=== PATIENT | female | born 1985 | race Caucasian/White ===

== ENCOUNTER 2020-04-01 14:14 | Emergency (ER) | payer OTHER, SELFPAY ==
[2020-04-01 14:37] VITALS: BP 110/80; PULSE 63; RESP 18; TEMP 36.7; O2SAT 100
== END 2020-04-01 15:37 | disposition left against medical advice (07) ==
PROVIDERS: PCP Family Medicine
DX: R10.9 Unspecified abdominal pain (principal)
CPT/HCPCS: 99199

== ENCOUNTER 2020-05-22 08:04 | Emergency (ER) | payer OTHER, SELFPAY ==
--- NOTE | ~2020-05-22 | XR_ITS ---
EXAMINATION: XR foot RT min 3V DATE: 05/22/2020 08:46 INDICATION: Right foot and first toe pain, initial encounter TECHNIQUE: Dorsoplantar, lateral, and 2 oblique views of the right foot were obtained. COMPARISON: None. FINDINGS: There is an acute, traumatic fracture at the dorsal tip of the first distal phalanx. No add itional acute osseous abnormality is identified. The joint spaces and soft tissues are normal. IMPRESSION: 1. Acute fracture at the dorsal tip of the first distal phalanx. Reviewed, dictated and finalized at location B.
[2020-05-22 08:32] VITALS: BP 117/73; PULSE 70; RESP 16; TEMP 36.2; O2SAT 99
--- NOTE | 2020-05-22 08:33 | ED.LOWEXIN ---
HPI - Extremity Injury (Lower) General Chief Complaint: Extremity Injury, Lower Stated Complaint: Extremity injury, lower Time Seen by Provider: 05/22/20 08:50 Source: patient and RN notes reviewed Mode of arrival: ambulatory Limitations: no limitations History of Present Illness HPI Narrative: 34-year-old female presents with concern for injury to the first digit of her right foot. Reports she dropped a tote containing 100 pound weights onto the toe on Wednesday. Reports since then the swelling, redness, pain has worsened. She denies any intervention, reports she has been working, wear steel toe boots at work. complaint: foot injury Related Data Allergies Allergy/AdvReac Type Severity Reaction Status Date / Time morphine Allergy Mild ANXIETY Verified 09/07/15 20:50 Penicillins Allergy Unknown Verified 09/07/15 20:50 Review of Systems Review of Systems: Narrative: CONSTITUTIONAL: Denies malaise, chills, sweats, or fever. CARDIOVASCULAR: Denies chest pain, palpitations, or edema. RESPIRATORY: Denies cough or dyspnea. SKIN: Reports bruising, redness, warmth to the first digit of the right foot. Reports a history of toenail fungus, her toenail is normally slightly pulled away from the toe. MUSCULOSKELETAL: Reports swelling, pain to the first digit of the right foot NEUROLOGIC: Denies numbness, weakness All systems reviewed & are unremarkable except as noted in HPI and below PMFSH Comments At time of signature, agree with nursing past medical, surgical, social and family history. There is no relevant family history pertinent to the presenting complaint Exam Narrative: Exam Narrative: GENERAL: Well-appearing, well-nourished, and in no acute distress. HEAD: Normocephalic, atraumatic. EYES: PERRLA, conjunctivae clear NECK: Supple. CHEST: Speaks in full sentences. No respiratory distress. HEART: Regular rate and rhythm. Normal and equal peripheral pulses. EXTREMITIES: First digit of right foot has normal strength and sensation, limited range of motion. Moderate edema, ecchymosis. Digit erythematous, warm. 3/5 strength with digit flexion and extension. Normal sensation with sensitivity to light touch and pain. No open wounds, no skin tenting, no devitalized tissue or atrophy, no trophic changes, no obvious deformity, alignment normal, generalized tenderness, nearby joints and structures intact. Distal pulses palpable and equal bilaterally, skin warm, dry, pink. Capillary refill less than 3 seconds. SKIN: Warm, dry, no rash. Toenail is pulled away from the toe, no compromise in the toenail noted, no bleeding. NEURO: Alert and oriented x3. PSYCH: Normal mood and affect Course Course Emergency Course: Patient is aware of diagnosis, understands and agrees to treatment plan. Anticipatory guidance given. Patient agrees to follow-up as directed and is aware of reasons to seek care at the emergency department. Portions of this record may have been created with voice recognition software Vital Signs Vital signs: Vital Signs Temperature 97.2 F L 05/22/20 08:32 Pulse Rate 70 05/22/20 08:32 Respiratory Rate 16 05/22/20 08:32 Blood Pressure 117/73 05/22/20 08:32 Pulse Oximetry 99 05/22/20 08:32 Temperature 97.2 F L 05/22/20 08:32 Pulse Rate 70 05/22/20 08:32 Respiratory Rate 16 05/22/20 08:32 Blood Pressure 117/73 05/22/20 08:32 Pulse Oximetry 99 05/22/20 08:32 Reviewed. MDM - Extremity Injury (Lower) MDM Narrative Medical decision making narrative: Patients injury and pain is consistent with musculoskeletal etiology. No signs of neurological or vascular compromise on exam. Compartments and tissues are soft without signs of compartment syndrome. Pain is felt appropriate for further evaluation on an outpatient basis. Based on warmth, erythema, pain beyond proportion, toenail pull away from the toe, will put patient on prophylactic antibiotics. Imaging Data My impression: Images reviewed, interpreted by
--- NOTE | 2020-05-22 09:19 | PC.NURSE ---
rt great toe geovany taped.
== END 2020-05-22 09:48 | disposition home or self-care (01) ==
PROVIDERS: Emergency Provider Nurse Practitioner; PCP Nurse Practitioner Family
DX: S92.421A Displaced fracture of distal phalanx of right great toe, initial encounter for closed fracture (principal); W20.8XXA Other cause of strike by thrown, projected or falling object, initial encounter; Z98.84 Bariatric surgery status
CPT/HCPCS: 73630; 99214; G0463

== ENCOUNTER 2021-05-23 13:23 | Emergency (ER) | payer OTHER, SELFPAY ==
[2021-05-23 13:35] VITALS: BP 95/65; PULSE 76; RESP 18; TEMP 36.4; O2SAT 100
--- NOTE | 2021-05-23 13:54 | ED.URI ---
HPI - URI/Sore Throat General Chief Complaint: Upper Respiratory Infection Stated Complaint: Sore Throat Time Seen by Provider: 05/23/21 13:54 Source: patient and RN notes reviewed Mode of arrival: ambulatory Limitations: no limitations History of Present Illness HPI Narrative: 35-year-old female presents to the [facility] with complaints of sore throat, fevers, postnasal drainage. Has had multiple strep contacts. States that her kids were tested for Covid 2 days ago which were negative. No treatment prior to arrival MD elicited complaint: fever (100.2 at home yesterday) Related Data Home Medications Medication Instructions Recorded Confirmed No Home Medications 05/23/21 05/23/21 Allergies Allergy/AdvReac Type Severity Reaction Status Date / Time morphine Allergy Mild ANXIETY Verified 05/23/21 14:20 Penicillins Allergy Unknown Other Verified 05/23/21 14:20 Review of Systems Review of Systems: All systems reviewed & are unremarkable except as noted in HPI and below Constitutional: Constitutional: Reports as per HPI, Denies chills and Reports fever(s) Eyes: Eyes: Reports no additional eye complaints ENT: Reports as per HPI, Reports nasal congestion and Reports sore throat Cardiovascular: Cardiovascular: Reports no additional cardiovascular complaints and Denies chest pain Respiratory: Respiratory: Reports no additional respiratory complaints, Denies cough and Denies dyspnea Musculoskeletal: Musculoskeletal: Reports no additional musculoskeletal complaints Integumentary/Breasts: Skin/Breast: Reports system reviewed and no additional complaints, except as docu Neurologic: Reports system reviewed and no additional complaints, except as documented Psychiatric: Psychiatric: Reports no additional psychiatric complaints Allergic/Immunologic: Allergic/Immunologic: Reports no additional allergic/immunologic complaints PMFSH Past Medical History Medical History (Updated 05/25/21 @ 08:32 by Taylor Carroll) No significant medical problems Surgical History Surgical History (Updated 05/25/21 @ 08:32 by Taylor Carroll) No significant past surgical history Comments At the time of my signature, I reviewed and agree with the nursing past medical, surgical, social, and family history. There is no relevant family history pertinent to the patient complaint. Exam Const: General: no acute distress and alert Nutritional Appearance: well nourished and thin Orientation/consciousness: patient oriented x3 Limitations: no limitations HENMT: Head: normal to inspection Ears: external ears normal, TM's normal bilaterally and EAC's normal Eyes: Conjunctivae: conjunctivae normal Pupils: Equal, round and reactive pupils present Neck: Neck: normal visual inspection, no lymphadenopathy and no meningeal signs Chest: Chest palpation & inspection: normal inspection of the chest Resp: Effort & Inspection: normal respiratory effort and no use of accessory muscles Auscultation: clear to auscultation bilaterally, no crackles, no rales, no rhonchi and no wheezes Cardio: Rate: regular rate Rhythm: regular rhythm Back/Spine/Pelvis: Back: no CVA tenderness Skin: General skin exam: normal color Rashes: no rashes Neuro: General: patient oriented x3, moves all extremities, no meningeal signs and no focal motor deficits Gait exam (Neuro): Normal gait present Extrem: General: normal to inspection Psych: Appearance: grossly normal and well kempt Mental Status: mental status grossly normal Affect: normal affect Attitude: cooperative Thought content: Yes Normal thought content present Course Course Emergency Course: At the time of my signature, I reviewed and agree with the nursing past medical, surgical, social, and family history. There is no relevant family history pertinent to the patient complaint. Vital Signs Vital signs: Vital Signs Temperature 97.6 F 05/23/21 13:35 Pulse Rate 76 05/23/21 13:35 Respirato
== END 2021-05-23 14:32 | disposition home or self-care (01) ==
PROVIDERS: Emergency Provider Nurse Practitioner
DX: B34.9 Viral infection, unspecified (principal)
CPT/HCPCS: 87081; 87880; 99213; G0463

== ENCOUNTER 2021-08-31 09:29 | Emergency (ER) | payer OTHER, SELFPAY ==
--- NOTE | 2021-08-31 09:34 | ED.FEMALEGU ---
HPI - Female Genitourinary General Chief complaint: Urogenital-Female Stated complaint: uti Time Seen by Provider: 08/31/21 09:46 Source: patient and RN notes reviewed Mode of arrival: ambulatory Limitations: no limitations History of Present Illness HPI Narrative: 35-year-old female presents with concern for 2-day history of urine frequency, urgency, suprapubic pressure. Reports after intercourse last week she had midcycle spotting. Reports that has resolved. Reports she noticed small amount of blood when she wipes after urination. She denies back pain, abdominal pain, purulent vaginal discharge, pain with sex, fever, body aches, chills, sweats. MD elicited complaint: UTI Related Data Home Medications Medication Instructions Recorded Confirmed levothyroxine 50 mcg PO DAILY 08/31/21 08/31/21 Allergies Allergy/AdvReac Type Severity Reaction Status Date / Time morphine Allergy Mild ANXIETY Verified 08/31/21 09:57 Penicillins Allergy Unknown Other Verified 08/31/21 09:57 Review of Systems Review of Systems: CONSTITUTIONAL: Denies malaise, chills, sweats, or fever. CARDIOVASCULAR: Denies chest pain, palpitations, or edema. RESPIRATORY: Denies cough or dyspnea. GASTROINTESTINAL: Denies abdominal pain, nausea, vomiting, diarrhea GENITOURINARY: Reports frequency, urgency, suprapubic pressure. Denies dysuria, flank pain or hematuria. SKIN: Denies rash or itching. MUSCULOSKELETAL: Denies back pain or myalgia. All systems reviewed & are unremarkable except as noted in HPI and below PMFSH Past Medical History Medical History (Updated 08/31/21 @ 10:01 by Taylor Meyer NP) No significant medical problems Surgical History Surgical History (Updated 05/25/21 @ 08:32 by Taylor Carroll) No significant past surgical history Comments At time of signature, agree with nursing past medical, surgical, social and family history. There is no relevant family history pertinent to the presenting complaint Exam Narrative: GENERAL: Well-appearing, well-nourished, and in no acute distress. HEAD: Normocephalic. EYES: PERRLA, conjunctivae clear. NECK: Supple. No lymphadenopathy CHEST: Clear to auscultation. No respiratory distress. HEART: Regular rate and rhythm. ABDOMEN: Soft, nontender upon palpation, nondistended, normal active bowel sounds, no palpable or pulsatile masses, no guarding. No CVA tenderness SKIN: Warm, dry, no rash. NEURO: Alert and oriented x3. PSYCH: Normal mood and affect Course Course Emergency Course: Patient is aware of diagnosis, understands and agrees to treatment plan. Anticipatory guidance given. Patient agrees to follow-up as directed and is aware of reasons to seek care at the emergency department. Portions of this record may have been created with voice recognition software Vital Signs Vital signs: Reviewed. MDM - Female Genitourinary MDM Narrative Medical decision making narrative: Exam findings and UA show no acute concerns or changes; patient is non-toxic appearing and is in no distress. Patient is appropriate for outpatient treatment and follow-up. Differential Diagnosis Differential diagnosis: Likely urinary tract infection, cervicitis, vaginitis, cystitis and other (PID) Critical Care Time Critical Care Time Critical Care Time: No Discharge Plan Discharge Clinical Impression: Urinary tract infection Qualifiers: Urinary tract infection type: site unspecified Hematuria presence: with hematuria Qualified Code(s): N39.0 - Urinary tract infection, site not specified Patient Disposition: Home, Self-Care Condition: Stable Instructions: Antibiotic Form, Urinary Tract Infection in Women (ED) Additional Instructions: We will send a urine culture to the lab; if the culture identifies an organism that the prescribed antibiotic will not treat, you will receive a phone call from an urgent care staff member and an appropriate antibiotic will be prescribed. -Your symptoms should begin
[2021-08-31 09:36] VITALS: BP 108/74; PULSE 74; RESP 16; TEMP 36.7; O2SAT 99
== END 2021-08-31 10:25 | disposition home or self-care (01) ==
PROVIDERS: Emergency Provider Nurse Practitioner
DX: N39.0 Urinary tract infection, site not specified (principal); E03.9 Hypothyroidism, unspecified; Z98.84 Bariatric surgery status
CPT/HCPCS: 81003; 87077; 87086; 87088; 87186; 99213; G0463

== ENCOUNTER 2021-11-05 09:42 | Emergency (ER) | payer OTHER, SELFPAY ==
[2021-11-05 09:51] VITALS: BP 122/73; PULSE 64; RESP 18; TEMP 36.8; O2SAT 100
--- NOTE | 2021-11-05 09:51 | ED.ALLEREA ---
HPI - Allergic Reaction General Chief complaint: Allergic Reaction Stated complaint: allergic reaction Time Seen by Provider: 11/05/21 09:47 History of Present Illness HPI narrative: 35-year-old female presents to the emergency room with complaints of acute onset of rash. Patient states she noticed the rash and itching approximately 30 minutes after ingesting a protein shake. Patient states she is allergic to penicillins. Associated with some tingling to her mouth and tongue. Denies shortness of breath difficulty breathing. Related Data Home Medications Medication Instructions Recorded Confirmed levothyroxine 50 mcg PO DAILY 08/31/21 08/31/21 Allergies Allergy/AdvReac Type Severity Reaction Status Date / Time morphine Allergy Mild ANXIETY Verified 11/05/21 09:58 Review of Systems Review of Systems: CONSTITUTIONAL: Denies fever, chills, or sweats. EYES: Denies visual changes, redness, or discharge. ENT: Denies rhinorrhea, congestion, sore throat, or otalgia. CARDIOVASCULAR: Denies chest pain, palpitations, or edema. RESPIRATORY: Denies cough or dyspnea. GASTROINTESTINAL: Denies abdominal pain, nausea, vomiting, or diarrhea. GENITOURINARY: Denies dysuria or hematuria. SKIN: Reports systemic rash or itching. MUSCULOSKELETAL: Denies back pain, joint pain, or myalgia. NEUROLOGIC: Denies headache, numbness, dizziness, or weakness. PSYCHIATRIC: Denies anxiety or depression. [facility] Past Medical History Medical History No significant medical problems Surgical History Surgical History No significant past surgical history Exam Narrative: GENERAL: Well-appearing, well-nourished, and in no acute distress. HEAD: Normocephalic, atraumatic. EYES: PERRLA and EOMI. ENT: Nares clear, no rhinorrhea or epistaxis. Mucous membranes moist. NECK: Supple. No adenopathy or masses. No carotid bruits or JVD CHEST: Clear to auscultation. No respiratory distress. No wheezes rales or rhonchi HEART: Regular rate and rhythm. No murmur heard. Normal peripheral pulses. ABDOMEN: Soft, nontender, nondistended, normal active bowel sounds. EXTREMITIES: Normal range of motion. No edema. SKIN: urticaria noted to back, chest, UE. NEURO: No focal deficits. Alert and oriented x3. PSYCH: Normal mood and affect. Course Course Emergency Course: 35-year-old female presented to emergency room complaining of allergic reaction after drinking a protein shake. IV established given Solu-Medrol Pepcid and Benadryl. After reexamination patient states that symptoms have begun to resolve. We will send patient home with prescription for steroids. Vital Signs Vital signs: Vital Signs Temperature 36.8 C 11/05/21 09:51 Pulse Rate 64 11/05/21 09:51 Respiratory Rate 18 11/05/21 09:51 Blood Pressure 122/73 11/05/21 09:51 Pulse Oximetry 100 11/05/21 09:51 Temperature 36.8 C 11/05/21 09:51 Pulse Rate 64 11/05/21 09:51 Respiratory Rate 18 11/05/21 09:51 Blood Pressure 122/73 11/05/21 09:51 Pulse Oximetry 100 11/05/21 09:51 MDM - Allergic Reaction MDM Narrative Medical decision making narrative: Patient responded well to Solu-Medrol Pepcid and Benadryl and a liter of IV fluids. Will send patient home with a short course of steroids Discharge Plan Discharge Clinical Impression: Urticaria Allergic reaction Qualifiers: Encounter type: initial encounter Qualified Code(s): T78.40XA - Allergy, unspecified, initial encounter Patient Disposition: Home, Self-Care Condition: Stable Instructions: Antibiotic Form, Allergies (ED) Additional Instructions: Recommend Pepcid daily. Recommend Benadryl every 6-8 hours as needed. Given instructions on when to return to the emergency room. Prescriptions: New prednisone 20 mg tablet 40 mg PO DAILY Qty: 10 RF: 0 No Action levothyroxine 50 mcg table
[2021-11-05] MEDS: diphenhydrAMINE HCl INJ 50 MG/ML VIAL 25 MG IV PUSH (10:00)
[2021-11-05] MEDS: FAMOTIDINE 20 MG/2 ML VIAL IV PUSH (10:00)
[2021-11-05] MEDS: methylPREDNISolone SOD SUCC 125 MG VIAL IV PUSH (10:00)
[2021-11-05] MEDS: SODIUM CHLORIDE 0.9% IV 1,000 ML 999 ML IV CONT (10:01)
[2021-11-05 11:05] VITALS: BP 101/69; PULSE 62; RESP 16; O2SAT 99
== END 2021-11-05 11:06 | disposition home or self-care (01) ==
PROVIDERS: Emergency Provider Nurse Practitioner Family
DX: L50.0 Allergic urticaria (principal)
CPT/HCPCS: 96361; 96374; 96375; 99284; J1200; J2930; J7030

== ENCOUNTER 2022-02-24 13:36 | Emergency (ER) | payer OTHER, SELFPAY ==
--- NOTE | ~2022-02-24 | CT_ITS ---
EXAMINATION: CT abdomen pelvis w con DATE: 02/24/2022 15:20 INDICATION: Rectal pain. TECHNIQUE: Computed tomography (CT) of the abdomen and pelvis was performed with 100 mL Omnipaque 300 intravenous contrast. Automated exposure control and iterative reconstruction technique were employe d. The dose-length product was 280.49 mGy-cm. COMPARISON: None. FINDINGS: The visualized portions of the lung bases demonstrate mild atelectasis. No pleural effusion . The heart size is normal. No pericardial effusion. There are surgical changes of the stomach. Calci fications in the spleen are consistent with old granulomatous disease. The gallbladder is absent. The liver, pancreas, adrenal glands, and kidneys are normal. There are no dilated loops of bowel. The ap pendix is normal. There are no pathologically enlarged lymph nodes. There is no free intraperitoneal fluid. Pelvic floor dysfunction is noted. There is mild thoracolumbar spondylosis. IMPRESSION: 1. Pelvic floor dysfunction. Reviewed, dictated and finalized at location B.
[2022-02-24 13:45] VITALS: BP 109/61; PULSE 65; RESP 16; TEMP 36.3; O2SAT 99
--- NOTE | 2022-02-24 14:03 | PC.NURSE ---
rectal exam by provider with press writer present.
--- NOTE | 2022-02-24 14:05 | ED.GENADULT ---
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 EYES: Denies visual changes, redness, or discharge. ENT: Denies rhinorrhea, congestion, sore throat, or otalgia. CARDIOVASCULAR: Denies chest pain, palpitations, or edema. RESPIRATORY: Denies cough or dyspnea. GASTROINTESTINAL: Denies abdominal pain, nausea, vomiting, or diarrhea. GENITOURINARY: Denies dysuria or hematuria. recctal pain SKIN: Denies rash or itching. MUSCULOSKELETAL: Denies back pain, joint pain, or myalgia. NEUROLOGIC: Denies headache, numbness, or weakness. PSYCHIATRIC: Denies anxiety or depression. PMFSH Past Medical History Medical History No significant medical problems Surgical History Surgical History No significant past surgical history Exam Const: Other: APPEARANCE: Well appearing, no pain in distress, well-nourished. Head normocephalic atraumtaic. EYES: PERRLA/EOMI, conjunctivae very clear. NOSE: Normal no drainage EARS:TMS clear Ct Oh, with good light reflex. THROAT: Pharynx clear, no exudate. NECK: Supple. No adenopathy, no masses. RESPIRATORY: Airway patent, repsirations nonlabored. Clear to auscultation bilaterally, no rales, rhonchi, wheezing. CARDIOVASCULAR: Regular rate and rhythm without murmurs rubs or gallops. ABDOMINAL: Soft, nontender, nondistended, no hepatosplenomegally, no external hemorrhoids and having so much pain with rectal unable to get pinkie finger more then past my dip joint into rectum clamping down with sphincter no abnormalities otherwise felt not sure if stricture or just due to pain unable to relax MUSCULOSKELETAl: Moves all extremities. Strenght/ROM intact, No edema, No calf tenderness. NEURO: Alert. Cranial nerves II through XII intact. Good gait. Good coordination SKIN:: Warm, dry. Normal Color PSYCHIATRIC: Normal affect/mood, normal interaction with parents. Course Course Emergency Course: updated pt says h/o iron def anemia so talked about otc meds and pain pills will constipate her so otc meds for this as needed and outpt f/u must be done b/c going on so long pt says she will f/u Vital Signs Vital signs: Vital Signs Temperature 36.3 C L 02/24/22 13:45 Pulse Rate 65 02/24/22 13:45 Respiratory Rate 16 02/24/22 13:45 Blood Pressure 109/61 02/24/22 13:45 Pulse Oximetry 99 02/24/22 13:45 Temperature 36.3 C L 02/24/22 13:45 Pulse Rate 65 02/24/22 13:45 Respiratory Rate 16 02/24/22 13:45 Blood Pressure 109/61 02/24/22 13:45 Pulse Oximetry 99 02/24/22 13:45 Medical Decision Making Vital Signs Vital Signs: Vital Signs Temperature 36.3 C L 02/24/22 13:45 Pulse Rate 65 02/24/22 13:45 Respiratory Rate 16 02/24/22 13:45 Blood Pressure 109/61 02/24/22 13:45 Pulse Oximetry 99 02/24/22 13:45 Temperature 36.3 C L 02/24/22 13:45 Pulse Rate 65 02/24/22 13:45 Respiratory Rate 16 02/24/22 13:45 Blood Pressure 109/61 02/24/22 13:45 Pulse Oximetry 99 06
[2022-02-24] MEDS: ONDANSETRON INJ 4 MG/2 ML VIAL IV PUSH (14:18)
[2022-02-24] MEDS: LORazepam INJ (*CRX) 2 MG/ML VIAL 1 MG IV PUSH (14:20)
[2022-02-24] MEDS: fentaNYL CITRATE INJ (*CRX) 100 MCG/2 ML VIAL 50 MCG IV PUSH (14:23)
[2022-02-24 14:49] LABS: Eosinophils Absolute Auto 0.1 K/mm3 (0-0.3); Eosinophils Percent Auto 2.5 % (0-4.4); Hematocrit 30.1 % (37.0-47.0); Immature Granulocyte Absolute 0.01 K/mm3 (0.00-0.031); Immature Granulocyte Percent A 0.3 % (0-0.5); Lymphocytes Absolute Auto 1.68 K/mm3 (0.9-3.2); Lymphocytes Percent Auto 42.3 % (18.3-44.2); Mean Corpuscular HGB Conc 29.9 g/dl (32-36); Mean Corpuscular Hemoglobin 22.1 pg (26-34); Mean Corpuscular Volume 73.8 fl (80-100); Mean Platelet Volume 9.7 fl (7.4-10.4); Monocytes Absolute Auto 0.5 K/mm3 (0.1-0.6); Monocytes Percent Auto 12.1 % (2.6-8.5); Neutrophils Absolute Auto 1.7 K/mm3 (1.3-6.7); Neutrophils Percent Auto 41.8 % (45.5-73.1); Platelet Count Result 275 k/mm3 (150-375); Red Blood Count 4.08 M/mm3 (4.2-5.4); Red Cell Distribution Width 16.3 % (11.5-14.5)
[2022-02-24 15:00] LABS: Alanine Aminotransferase 19 U/L (6-35); Alkaline Phosphatase 61 U/L (38-126); Anion Gap 6 mmol/L (8-16); Aspartate Amino Transferase 28 U/L (14-36); Bilirubin,Total 0.2 mg/dL (0.2-1.3); Blood Urea Nitrogen 15 mg/dL (7-17); Calcium 8.5 mg/dL (8.4-10.2); Carbon Dioxide 25 mmol/L (22-30); Chloride 108 mmol/L (98-107); Estimated Glomerular Filt Rate > 60; Glucose 85 mg/dL (65-110); Potassium 3.8 mmol/L (3.4-5.0); Sodium 139 mmol/L (137-145)
[2022-02-24] MEDS: HYDROcodone/acetaminophen (*CRX) 5-325 MG TABLET 1 TAB PO (16:24)
[2022-02-24 16:52] VITALS: RESP 16; O2SAT 100
== END 2022-02-24 16:53 | disposition home or self-care (01) ==
PROVIDERS: Emergency Provider Emergency Medicine
DX: K62.89 Other specified diseases of anus and rectum (principal); G89.29 Other chronic pain; D50.9 Iron deficiency anemia, unspecified
CPT/HCPCS: 36415; 74177; 80053; 81025; 85025; 96374; 96375; 99284; A9270; J2060; J2405; J3010; Q9967

== ENCOUNTER 2022-04-06 20:07 | Emergency (ER) | payer OTHER, SELFPAY ==
--- NOTE | ~2022-04-06 | CT_ITS ---
EXAMINATION: CT abdomen pelvis w con DATE: 04/06/2022 23:11 INDICATION: Dysuria, right flank pain, chills, fevers and body aches. TECHNIQUE: Computed tomography (CT) of the abdomen and pelvis was performed with 100 mL Omnipaque-300 intravenous contrast. Automated exposure control and iterative reconstruction technique were employe d. The dose-length product was 309.98 mGy-cm. COMPARISON: 02/24/2022 FINDINGS: Minimal dependent atelectasis in the left lower lobe. Heart size is normal. No pericardial or pleural effusion. A few splenic calcifications consistent with old granulomatous disease. Postoperative bardales ge of prior gastric bypass procedure. Gallbladder is nonvisualized and likely surgically absent. Live r, pancreas, bilateral adrenal glands and left kidney are normal. Heterogeneous parenchymal enhanceme nt at the lower pole of the right kidney consistent with pyelonephritis. Bowels are unremarkable with normal retrocecal appendix. Bladder is normal. Anteverted uterus and right adnexa are unremarkable. 1.9 cm peripherally enhancing likely corpus luteum cyst at the left adnexa. Small amount of likely ph ysiologic free fluid in the cul-de-sac. No abscess or free intraperitoneal gas. No pathologically enl arged abdominal or pelvic lymphadenopathy. Bones are unremarkable. IMPRESSION: 1. Heterogeneous parenchymal enhancement at the lower pole of the right kidney most suspicious for py elonephritis. Correlate with urinalysis. Reviewed, dictated and finalized at location A. IMPRESSION: 1. Heterogeneous parenchymal enhancement at the lower pole of the right kidney most suspicious for pyelonephritis. Correlate with urinalysis.
[2022-04-06 20:33] VITALS: BP 108/62; PULSE 90; RESP 18; TEMP 36.9; O2SAT 100
[2022-04-06 21:13] LABS: Appearance Urine Slightly Cloudy (Clear); Bilirubin Urine Negative (Negative); Blood Urine Negative (Negative); Color Urine Yellow (Yellow); Glucose Urine UA Negative (Negative); Ketones Urine Negative (Negative); Leukocyte Esterase Ur 2+ LEU/UL (Negative); Nitrate Urine Positive (Negative); Protein Urine 1+ mg/dL (Negative); Urobilinogen Urine 0.2 mg/dL (<2.0)
[2022-04-06 21:27] LABS: Bacteria Urine 1+ /hpf; Mucus Urine Rare /lpf; Squamous Epithelial Cell Urine Occasional /hpf (Few); WBC Urine >75 /hpf
[2022-04-06 21:29] LABS: Add Urine Microscopic? YES
--- NOTE | 2022-04-06 21:49 | ED.FEMALEGU ---
HPI - Female Genitourinary General Chief complaint: Urogenital-Female Stated complaint: flank pain Time Seen by Provider: 04/06/22 21:40 Source: patient Mode of arrival: ambulatory Limitations: no limitations History of Present Illness HPI Narrative: This is a 36 year old female that presents to the ER for dysuria noted since yesterday. Associated with urinary frequency, fever, and flank pain. Denies vomiting or hematuria. Related Data Home Medications Medication Instructions Recorded Confirmed levothyroxine 50 mcg tablet 50 mcg PO DAILY 08/31/21 08/31/21 Allergies Allergy/AdvReac Type Severity Reaction Status Date / Time Penicillins Allergy Unknown Verified 04/06/22 22:05 Review of Systems Review of Systems: CONSTITUTIONAL: Reports fever GASTROINTESTINAL: Reports abdominal pain. Denies nausea, vomiting GENITOURINARY: Reports dysuria. Denies hematuria. All systems reviewed & are unremarkable except as noted in HPI and below PMFSH Past Medical History Medical History (Updated 04/07/22 @ 00:20 by Julienne Watson PA-C) No significant medical problems Surgical History Surgical History (Updated 04/06/22 @ 21:51 by Julienne Watson PA-C) History of bariatric surgery History of cholecystectomy Social History Social History (Updated 04/06/22 @ 21:51 by Julienne Watson PA-C) Substance use: never Exam Narrative: GENERAL: Well-appearing, well-nourished, and in no acute distress. HEAD: Normocephalic, atraumatic. EYES: EOMI. CHEST: Clear to auscultation. No respiratory distress. No wheezes rales or rhonchi HEART: Regular rate and rhythm. No murmur heard. Normal peripheral pulses. ABDOMEN: Soft, nondistended, normal active bowel sounds. Right-sided CVA tenderness EXTREMITIES: Normal range of motion. No edema. SKIN: Warm, dry, no rash. NEURO: No focal deficits. Alert and oriented x3. PSYCH: Normal mood and affect Course Vital Signs Vital signs: Vital Signs Temperature 98.5 F 04/06/22 20:33 Pulse Rate 90 04/06/22 20:33 Respiratory Rate 18 04/06/22 20:33 Blood Pressure 108/62 04/06/22 20:33 Pulse Oximetry 100 04/06/22 20:33 Oxygen Delivery Room Air 04/06/22 20:33 Temperature 98.5 F 04/06/22 20:33 Pulse Rate 76 04/07/22 00:22 Respiratory Rate 18 04/07/22 00:22 Blood Pressure 85/60 L 04/07/22 00:22 Pulse Oximetry 97 04/07/22 00:22 Oxygen Delivery Room Air 04/06/22 22:03 MDM - Female Genitourinary MDM Narrative Medical decision making narrative: Patient presents emergency department for fever, flank pain, and dysuria. She is afebrile in the ED and nontoxic-appearing. Her vitals are stable. CBC with leukocytosis to 13.7. Also shows microcytic anemia with hemoglobin of 9.5 which appears to be stable from previous labs. Metabolic panel and lipase without concerning findings. UA is without evidence of infection. test is negative. CT scan abdomen and pelvis shows evidence of right pyelonephritis. Patient given first dose of antibiotics IV in the ED and hydrated. Given option of admission or further outpatient management with oral antibiotics. Patient wishes to be discharged home. She was instructed to follow-up with primary care doctor. She was given warnings to return to the ER Lab Data Attestation: I reviewed the patient's lab results. Result diagrams: 04/06/22 22:10 04/06/22 22:10 Labs: Lab Results 04/06/22 04/06/22 04/06/22 Range/Units 21:05 21:05 22:10 WBC 13.7 H (4.5-10.0) K/mm3 RBC 4.42 (4.2-5.4) M/mm3 Hgb 9.5 L (12.0-15.0) g/dL Hct 32.9 L (37.0-47.0) % MCV 74.4 L (80-100) fl MCH 21.5 L (26-34) pg MCHC 28.9 L (32-36) g/dl RDW 17.1 H (11.5-14.5) % Plt Count 259 (150-375) k/mm3 MPV 9.5 (7.4-10.4) fl Immature Gran % (Auto) 0.3 (0-0.5) % Neut % (Auto) 81.5 H (45.5-73.1) % Lymph % (Auto) 7.6 L (18.3-44.2) % [place] % (Auto) 10.1
[2022-04-06 22:03] VITALS: BP 106/68; PULSE 85; RESP 20; O2SAT 100
[2022-04-06] MEDS: SODIUM CHLORIDE 0.9% IV 1,000 ML 999 ML IV CONT (22:11)
[2022-04-06 22:18] LABS: Basophils Absolute Auto 0.1 K/mm3 (0.0-0.1); Basophils Percent Auto 0.4 % (0.2-1.2); Eosinophils Percent Auto 0.1 % (0-4.4); Hematocrit 32.9 % (37.0-47.0); Hemoglobin 9.5 g/dL (12.0-15.0); Immature Granulocyte Absolute 0.04 K/mm3 (0.00-0.031); Immature Granulocyte Percent A 0.3 % (0-0.5); Lymphocytes Absolute Auto 1.04 K/mm3 (0.9-3.2); Lymphocytes Percent Auto 7.6 % (18.3-44.2); Mean Corpuscular HGB Conc 28.9 g/dl (32-36); Mean Corpuscular Hemoglobin 21.5 pg (26-34); Mean Corpuscular Volume 74.4 fl (80-100); Mean Platelet Volume 9.5 fl (7.4-10.4); Monocytes Absolute Auto 1.4 K/mm3 (0.1-0.6); Monocytes Percent Auto 10.1 % (2.6-8.5); Neutrophils Absolute Auto 11.2 K/mm3 (1.3-6.7); Neutrophils Percent Auto 81.5 % (45.5-73.1); Platelet Count Result 259 k/mm3 (150-375); Red Blood Count 4.42 M/mm3 (4.2-5.4); Red Cell Distribution Width 17.1 % (11.5-14.5); White Blood Count 13.7 K/mm3 (4.5-10.0)
[2022-04-06 22:29] LABS: Alanine Aminotransferase 14 U/L (6-35); Albumin Level 3.8 g/dL (3.5-5.1); Alkaline Phosphatase 66 U/L (38-126); Anion Gap 8 mmol/L (8-16); Aspartate Amino Transferase 22 U/L (14-36); Bilirubin,Total 0.3 mg/dL (0.2-1.3); Blood Urea Nitrogen 11 mg/dL (7-17); Calcium 8.9 mg/dL (8.4-10.2); Carbon Dioxide 25 mmol/L (22-30); Chloride 105 mmol/L (98-107); Estimated CRCL calculation 92 ml/min; Estimated Glomerular Filt Rate > 60; Glucose 107 mg/dL (65-110); Lipase 55 U/L (23-300); Potassium 4.3 mmol/L (3.4-5.0); Sodium 138 mmol/L (137-145)
[2022-04-06 22:37] LABS: Hypochromasia 1+ (NORMAL); Platelet Estimate Adequate (Adequate)
[2022-04-06 22:38] LABS: Anisocytosis 2+ (NORMAL)
[2022-04-06 22:52] LABS: Pregnancy On Board Control Positive; Urine Pregnancy Test Negative
[2022-04-07 00:22] VITALS: BP 85/60; PULSE 76; RESP 18; O2SAT 97
== END 2022-04-07 00:33 | disposition home or self-care (01) ==
PROVIDERS: Emergency Medicine; Physician Assistant; Emergency Provider General Practice; PCP Nurse Practitioner Family
DX: N12 Tubulo-interstitial nephritis, not specified as acute or chronic (principal); Z98.84 Bariatric surgery status
CPT/HCPCS: 36415; 74177; 80053; 81001; 81025; 83690; 85025; 87077; 87086; 87186; 96361; 96365; 96368; 99284; J0131; J0696; J7030; Q9967

== ENCOUNTER 2023-03-17 19:16 | Emergency (ER) | payer OTHER, SELFPAY ==
[2023-03-17 19:19] VITALS: BP 109/78; PULSE 88; RESP 12; TEMP 36.2; O2SAT 100
--- NOTE | 2023-03-17 21:34 | ED.ALLEREA ---
HPI - Allergic Reaction General Chief complaint: Allergic Reaction <JOSE Murguia Last Filed: 03/17/23 23:48> Stated complaint: allergic reaction since 03/09 <JOSE Murguia Last Filed: 03/17/23 23:48> Time Seen by Provider: 03/17/23 21:24 <Barb Marshall PA-C - Last Filed: 03/17/23 23:48> History of Present Illness HPI narrative: 37-year-old female reports for evaluation of itchiness and burning sensation starting her face, neck and chest x7 days. She also reports hives that occurred on her chest today but have since resolved. Patient states she went to urgent care 2 days into symptoms and was given a low-dose of prednisone for 5 days. States she took her last dose of the prednisone yesterday. Reports the prednisone helped her symptoms for a short-term but then worsened after she discontinued her prednisone. She states her lips may be slightly swollen, but denies swelling to tongue, throat, difficulty breathing, wheezing, swelling in her throat, n/v, abdominal pain, fever. She tried almond milk for the first time prior to the start of symptoms, but otherwise denies new potential triggers including other new foods, creams or lotions, clothing. 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 She made a primary care appointment in 4 days for evaluation, but came to the ED because she states she cannot wait that long. <JOSE Murguia Last Filed: 03/17/23 23:48> Related Data Home medications: Home Medications Medication Instructions Recorded Confirmed levothyroxine 50 mcg tablet 50 mcg PO DAILY 08/31/21 08/31/21 <JOSE Murguia Last Filed: 03/17/23 23:48> Allergies/adverse reactions: Allergies Allergy/AdvReac Type Severity Reaction Status Date / Time Penicillins Allergy Unknown Verified 03/17/23 19:17 morphine AdvReac Anxiety Verified 03/17/23 21:29 <JOSE Murguia Last Filed: 03/17/23 23:48> Review of Systems Review of Systems: CONSTITUTIONAL: Denies fever, chills EYES: Denies visual changes, redness, or discharge. ENT: Denies rhinorrhea, congestion, sore throat, or otalgia. CARDIOVASCULAR: Denies chest pain, palpitations, or edema. RESPIRATORY: Denies cough or dyspnea. GASTROINTESTINAL: Denies abdominal pain, nausea, vomiting, or diarrhea. GENITOURINARY: Denies dysuria or hematuria. SKIN: See HPI MUSCULOSKELETAL: Denies back pain, joint pain, or myalgia. NEUROLOGIC: Denies headache, numbness, dizziness, or weakness. PSYCHIATRIC: Denies anxiety or depression. <Barb Marshall PA-C - Last Filed: 03/17/23 23:48> [facility] Past Medical History Medical History: Medical History No significant medical problems <Barb Marshall PA-C - Last Filed: 03/17/23 23:48> Surgical History Surgical History: Surgical History History of bariatric surgery History of cholecystectomy <Barb Marshall PA-C - Last Filed: 03/17/23 23:48> Social History Social History: Social History Substance use: never <Barb Marshall PA-C - Last Filed: 03/17/23 23:48> Exam Narrative: GENERAL: Well-appearing, in no acute distress. Patient resting comfortably in exam bed. She is pleasant and conversational, speaking in full sentences. HEAD: Normocephalic EYES: PERRLA ENT: Nares clear. Mucous membranes moist. Oropharynx without tonsillar hypertrophy exudate or other lesions. Multiple caries. No swelling to lips, tongue, uvula, or pharynx. She is tolerating secretions. NECK: Supple. CHEST: No respiratory distress. Clear to auscultation, no adventitious breath sounds. No retractions. HEART: Regular rate and rhythm. No murmur heard. Normal peripheral pulses. ABDOMEN: Soft, nontender, normal active b
[2023-03-17] MEDS: FAMOTIDINE 20 MG/2 ML VIAL IV PUSH (21:57)
[2023-03-17] MEDS: diphenhydrAMINE HCl INJ 50 MG/ML VIAL 25 MG IV PUSH (21:58)
[2023-03-18 00:08] VITALS: BP 106/89; PULSE 76; RESP 16; O2SAT 98
== END 2023-03-18 00:10 | disposition home or self-care (01) ==
PROVIDERS: Emergency Provider Physician Assistant; PCP Nurse Practitioner Family
DX: T78.40XA Allergy, unspecified, initial encounter (principal); Z90.49 Acquired absence of other specified parts of digestive tract; Z98.84 Bariatric surgery status
CPT/HCPCS: 96374; 96375; 99284; J1100; J1200

== ENCOUNTER 2024-03-24 21:58 | Emergency (ER) | payer OTHER, SELFPAY ==
--- NOTE | ~2024-03-24 | CT_ITS ---
EXAMINATION: CT abdomen pelvis w con DATE: 03/25/2024 01:50 INDICATION: Abdominal pain and flank pain TECHNIQUE: Computed tomography (CT) of the abdomen and pelvis was performed with 100 mL Omnipaque-350 intravenous contrast. Automated exposure control and iterative reconstruction technique were employe d. The dose-length product was 252.82 mGy-cm. COMPARISON: 04/06/2022 FINDINGS: Lung bases are clear. Heart size is normal. Postoperative change of prior gastric bypass procedure wi th jejunojejunal anastomosis in the left abdomen. Unchanged mild dilation of the common bile duct to 8 mm with mild central intrahepatic ductal or ductal dilation with gallbladder again not able to be v isualized suggesting this is surgically absent.. The splenic calcific lesions consistent with old gra nulomatous disease. Pancreas, bilateral adrenal glands and kidneys are normal. Bowels including the a ppendix are normal. Bladder is normal. Endometrial complex measures up to 14 mm in thickness within t he anteverted uterus which would be within normal limits during the secretory phase of menstrual cycl e. Bilateral ovaries are unremarkable with 2.2 cm dominant follicle at the right ovary. Tiny fat-cont aining umbilical hernia. Trace amount of likely physiologic free fluid in the cul-de-sac. No abscess or free intraperitoneal gas. Bones are unremarkable. IMPRESSION: 1. No acute intra-abdominal/pelvic process. 2. Persistent mild intra and extrahepatic bile ductal dilation likely related to prior cholecystectom y. Correlate with surgical history. Reviewed, dictated and finalized at location A. IMPRESSION: 1. No acute intra-abdominal/pelvic process. 2. Persistent mild intra and extrahepatic bile ductal dilation likely related t o prior cholecystectomy. Correlate with surgical history.
[2024-03-24 22:04] VITALS: BP 95/58; PULSE 80; RESP 18; TEMP 36.6; O2SAT 99
[2024-03-25] VITALS (8 sets, daily range): BP systolic 91–105; BP diastolic 56–78; PULSE 60–77; RESP 12–20; O2SAT 96–100
[2024-03-25 00:37] LABS: Basophils Absolute Auto 0.1 K/mm3 (0.0-0.1); Eosinophils Absolute Auto 0.1 K/mm3 (0-0.3); Eosinophils Percent Auto 2.5 % (0-4.4); Hematocrit 33.3 % (37.0-47.0); Hemoglobin 9.3 g/dL (12.0-15.0); Immature Granulocyte Absolute 0.01 K/mm3 (0.00-0.031); Immature Granulocyte Percent A 0.2 % (0-0.5); Lymphocytes Absolute Auto 1.77 K/mm3 (0.9-3.2); Lymphocytes Percent Auto 36.3 % (18.3-44.2); Mean Corpuscular HGB Conc 27.9 g/dl (32-36); Mean Corpuscular Hemoglobin 18.9 pg (26-34); Mean Corpuscular Volume 67.8 fl (80-100); Mean Platelet Volume 9.7 fl (7.4-10.4); Monocytes Absolute Auto 0.5 K/mm3 (0.1-0.6); Monocytes Percent Auto 9.9 % (2.6-8.5); Neutrophils Absolute Auto 2.4 K/mm3 (1.3-6.7); Neutrophils Percent Auto 50.1 % (45.5-73.1); Platelet Count Result 313 k/mm3 (150-375); Red Blood Count 4.91 M/mm3 (4.2-5.4); Red Cell Distribution Width 18.6 % (11.5-14.5); White Blood Count 4.9 K/mm3 (4.5-10.0)
[2024-03-25 00:47] LABS: Anion Gap 11 mmol/L (4-12); Blood Urea Nitrogen 16 mg/dL (7-17); Calcium 9.2 mg/dL (8.4-10.2); Carbon Dioxide 26 mmol/L (22-30); Chloride 102 mmol/L (98-107); Estimated CRCL calculation 104 ml/min; Estimated Glomerular Filt Rate > 60; Glucose 81 mg/dL (65-110); Sodium 139 mmol/L (137-145)
[2024-03-25 00:49] LABS: Appearance Urine Cloudy (Clear); Bacteria Urine None Seen /hpf; Bilirubin Urine Negative (Negative); Blood Urine Negative (Negative); Color Urine Yellow (Yellow); Glucose Urine UA Negative (Negative); Ketones Urine Negative (Negative); Leukocyte Esterase Ur Negative LEU/UL (Negative); Nitrate Urine Negative (Negative); Non Pathogenic Casts 0-2; Protein Urine Trace mg/dL (Negative); RBC Urine 0-2 /hpf (0-2); Specific Grav Ur 1.029 (1.001-1.035); Squamous Epithelial Cell Urine None Seen /hpf (Few); WBC Urine 0-5 /hpf (0-3); pH Urine 6.5 (5.0-9.0)
[2024-03-25 00:57] LABS: Add Urine Microscopic? YES
[2024-03-25 01:00] LABS: Anisocytosis 1+; Hypochromasia 1+; Platelet Estimate Adequate (Adequate); Schistocytes None Seen
--- NOTE | 2024-03-25 01:12 | ED.ABDPAIN ---
HPI - Abdominal Pain General Chief Complaint: Urogenital-Female <JOSE Maradiaga Last Filed: 03/27/24 09:40> Stated Complaint: kidney infection <JOSE Maradiaga Last Filed: 03/27/24 09:40> Time Seen by Provider: 03/25/24 00:12 <JOSE Maradiaga Last Filed: 03/27/24 09:40> Source: patient <JOSE Maradiaga Last Filed: 03/27/24 09:40> Mode of arrival: ambulatory <JOSE Maradiaga Last Filed: 03/27/24 09:40> Limitations: no limitations <JOSE Maradiaga Last Filed: 03/27/24 09:40> History of Present Illness HPI narrative: This is a 38-year-old female that presents to the emergency department for flank pain. Reports associated pelvic pain. The pain is cramping in nature. Reports chills. Denies fevers, vomiting, dysuria, or hematuria. <JOSE Maradiaga Last Filed: 03/27/24 09:40> Related Data Home Medications: Home Medications Medication Instructions Recorded Confirmed levothyroxine 50 mcg tablet 50 mcg PO DAILY 08/31/21 08/31/21 <JOSE Maradiaga Last Filed: 03/27/24 09:40> Allergies/Adverse Reactions: Allergies Allergy/AdvReac Type Severity Reaction Status Date / Time Penicillins Allergy Unknown Verified 03/24/24 22:16 morphine AdvReac Anxiety Verified 03/24/24 22:16 <JOSE Maradiaga Last Filed: 03/27/24 09:40> Review of Systems Review of Systems: CONSTITUTIONAL: Denies fever GASTROINTESTINAL: Reports abdominal pain. Denies nausea, vomiting, or diarrhea. GENITOURINARY: Denies dysuria or hematuria. <JOSE Maradiaga Last Filed: 03/27/24 09:40> All systems reviewed & are unremarkable except as noted in HPI and below <JOSE Maradiaga Last Filed: 03/27/24 09:40> PMFSH Past Medical History Medical History: Medical History No significant medical problems <Julienne Watson PA-C - Last Filed: 03/27/24 09:40> Surgical History Surgical History: Surgical History History of bariatric surgery History of cholecystectomy <Julienne Watson PA-C - Last Filed: 03/27/24 09:40> Social History Social History: Social History Substance use: never <Julienne Watson PA-C - Last Filed: 03/27/24 09:40> Exam Narrative: GENERAL: Well-appearing, well-nourished, and in no acute distress. HEAD: Normocephalic, atraumatic. EYES: EOMI. CHEST: Clear to auscultation. No respiratory distress. No wheezes rales or rhonchi HEART: Regular rate and rhythm. No murmur heard. Normal peripheral pulses. ABDOMEN: Soft, nontender, nondistended, normal active bowel sounds. No CVA tenderness EXTREMITIES: Normal range of motion. No edema. SKIN: Warm, dry, no rash. NEURO: No focal deficits. Alert and oriented x3. PSYCH: Normal mood and affect <Julienne Watson PA-C - Last Filed: 03/27/24 09:40> Course Course Emergency Course: Patient updated on workup thus far. Care taken over by Dr. Richard at shift change <Julienne Watson PA-C - Last Filed: 03/27/24 09:40> [employer]/PA Physician Supervision For this patient encounter, I reviewed the [employer] or PA documentation, treatment plan, and medical decision making; and I had [id number] time with this patient. On re-evaluation patient does describe lower right back pain that radiates into her right hip. CT scan was negative for intra-abdominal pathology. Patient is afebrile with no leukocytosis and a stable hemoglobin. Patient has no acute abnormalities on her CMP urine was negative for infection. Patient is being treated for sciatica pain. Patient was updated results of workup patient was comfortable with plan for discharge and close follow-up. <Koko Richard MD - Last Filed: 03/25/24 21:43> Vital Signs Vital signs: Vital Signs Temperature
[2024-03-25] MEDS: KETOROLAC 15 MG/ML VIAL (*BKC) IV PUSH (03:21)
== END 2024-03-25 07:13 | disposition home or self-care (01) ==
PROVIDERS: Emergency Medicine; Emergency Provider Physician Assistant; PCP Nurse Practitioner Family
DX: M54.31 Sciatica, right side (principal); Z90.49 Acquired absence of other specified parts of digestive tract; Z98.84 Bariatric surgery status
CPT/HCPCS: 36415; 74177; 80048; 81001; 81025; 85025; 96374; 99284; J1885; Q9967

== ENCOUNTER 2025-07-03 15:43 | Emergency (ER) | payer OTHER, SELFPAY ==
[2025-07-03] VITALS (8 sets, daily range): BP systolic 100–135; BP diastolic 60–74; PULSE 50–71; RESP 8–16; TEMP 36.6; O2SAT 97–100
--- NOTE | ~2025-07-03 | CT_ITS ---
CT abdomen pelvis w con INDICATION:LLQ pain, . COMPARISON: None. TECHNIQUE: Axial images of the abdomen and pelvis were obtained following infusion of 100 mL Isovue 300. Dose optimization technique was utilized. FINDINGS: The lung bases are clear. The liver parenchyma is unremarkable. No intrahepatic mass or ductal dilatation is evident. The gallbladder is unremarkable. The pancreas and spleen are normal in appearance. The adrenal glands are symmetric in size. The kidneys demonstrate symmetric uptake and excretion of contrast. No cystic mass is evident. There is no solid mass. There is no hydronephrosis. Evaluation of the stomach and bowel loops are limited due to lack of oral contrast. The appendix is normal in appearance. The bladder and rectum are normal. Endometrium is thickened. Right adnexal cyst measures 5 x 7.2 cm cyst. Left adnexal cyst measures 7.4 x 4.5 cm. No free intraperitoneal fluid or air is evident. There is no significant retroperitoneal lymphadenopathy. The aorta, visceral vessels and renal arteries demonstrate normal caliber and patency. The lower thoracic and lumbar vertebrae are in normal alignment. IMPRESSION: 5 x 7.2 cm right adnexal cyst. 7.4 x 4.5 cm left adnexal cyst. All CT scans at this facility are performed using low dose modulation techniques as appropriate to perform exam including the following: automated exposure control; use of iterative reconstruction technique; adjustment of the mA and/or kV according to patient size (this includes techniques or standardized protocols for targeted exams where dose is matched to indication/reason for exam). Reviewed, dictated and finalized at location S. IMPRESSION: 5 x 7.2 cm right adnexal cyst. 7.4 x 4.5 cm left adnexal cyst. All CT scans at this facility are performed using low dose modulation techniqu es as appropriate to perform exam including the following: automated exposure c ontrol; use of iterative reconstruction technique; adjustment of the mA and/or kV according to patient size (this includes techniques or standardized protocol s for targeted exams where dose is matched to indication/reason for exam).
[2025-07-03 16:57] LABS: Hematocrit 39.8 % (37.0-47.0); Hemoglobin 12.7 g/dL (12.0-15.0); Immature Granulocyte Percent A 0.2 % (0-0.5); Lymphocytes Absolute Auto 1.18 K/mm3 (0.9-3.2); Mean Corpuscular HGB Conc 31.9 g/dl (32-36); Mean Corpuscular Hemoglobin 29.7 pg (26-34); Mean Corpuscular Volume 93.0 fl (80-100); Nucleated Red Blood Cells Absolute Auto 0.000 K/mm3 (0.0-0.012); Nucleated Red Blood Cells Perc 0.0 % (0.0-0.2); Platelet Count Result 243 k/mm3 (150-375); Red Blood Count 4.28 M/mm3 (4.2-5.4); White Blood Count 4.0 K/mm3 (4.5-10.0)
[2025-07-03 17:11] LABS: Alanine Aminotransferase 17 U/L (6-35); Albumin Level 3.6 g/dL (3.5-5.1); Alkaline Phosphatase 53 U/L (38-126); Anion Gap 3 mmol/L (4-12); Aspartate Amino Transferase 27 U/L (14-36); Bilirubin,Total 0.3 mg/dL (0.2-1.3); Blood Urea Nitrogen 14 mg/dL (7-17); Calcium 8.5 mg/dL (8.4-10.2); Carbon Dioxide 29 mmol/L (22-30); Chloride 105 mmol/L (98-107); Estimated CRCL calculation 91 ml/min; Estimated Glomerular Filt Rate > 60; Glucose 90 mg/dL (65-110); Lipase 54 U/L (23-300); Potassium 4.2 mmol/L (3.4-5.0); Sodium 137 mmol/L (137-145); Total Protein 6.2 g/dL (6.3-8.2)
[2025-07-03 18:27] LABS: Pregnancy On Board Control Positive
[2025-07-03 18:31] LABS: Add Urine Microscopic? YES; Appearance Urine Clear (Clear); Glucose Urine UA Negative (Negative); Leukocyte Esterase Ur Negative LEU/UL (Negative); Nitrate Urine Negative (Negative); Non Pathogenic Casts 0-2; Specific Grav Ur 1.021 (1.001-1.035)
--- NOTE | 2025-07-03 18:52 | ED_ITS ---
HPI - General Adult General Chief complaint: Abdominal Pain <Hubert Enciso MD - Last Filed: 07/03/25 18:57> Stated complaint: lower abdominal pain <Hubert Enciso MD - Last Filed: 07/03/25 18:57> Time Seen by Provider: 07/03/25 16:38 <Hubert Enciso MD - Last Filed: 07/03/25 18:57> History of Present Illness HPI narrative: This is a 39-year-old female with history of ovarian cyst presenting with left lower quadrant abdominal pain. Pain started yesterday. It is a dull ache. It is nonradiating, moderate intensity and constant. She has had pain like this in the past. No exacerbating alleviating factors. She denies fevers chills nausea vomiting or diarrhea. She notes some pain on urination. Patient is being treated for bacterial vaginosis by her OBGYN. This week but could h her OBGYN later this week but be came anxious about the pain and presented to the ED. <Hubetr Enciso MD - Last Filed: 07/03/25 18:57> Related Data Home medications: Home Medications ?Medication ?Instructions ?Recorded ?Confirmed ?Last Taken ?Type levothyroxine 50 mcg tablet 50 mcg PO DAILY 08/31/21 1 11/01/2022 History <Hubert Enciso MD - Last Filed: 07/03/25 18:57> Allergies/adverse reactions: Allergies Allergy/AdvReac Type Severity Reaction Status Date / Time Penicillins Allergy Unknown Verified 07/03/25 15:48 morphine AdvReac Anxiety Verified 07/03/25 15:48 <Hubert Encsio MD - Last Filed: 07/03/25 18:57> [facility] Past Medical History Medical History: Medical History No significant medical problems <Hubert Enciso MD - Last Filed: 07/03/25 18:57> Surgical History Surgical History: Surgical History History of bariatric surgery History of cholecystectomy <Hubert Enciso MD - Last Filed: 07/03/25 18:57> Social History Social History: Social History Substance use: never <Hubert Enciso MD - Last Filed: 07/03/25 18:57> Exam 2 Narrative: APPEARANCE: No apparent distress. Head: atraumatic. EYES: EOMI, NOSE: Atraumatic NECK: Trachea midline RESPIRATORY: No increased rate of breathing CARDIOVASCULAR: RRR, ABDOMINAL: Soft nontender no guarding or rebound deep palpation in the left lower quadrant did not elicit a grimace. MUSCULOSKELETAl: No obvious deformities NEURO: Alert. Moving 4/4 extremities SKIN:: Warm, dry. Normal color PSYCHIATRIC: Normal affect <Hubert Enciso MD - Last Filed: 07/03/25 18:57> Course Course Emergency Course: Patient care signed over by previous provider pending completion of workup and CT scan. Laboratory studies are reassuring without any leukocytosis or anemia. Normal platelet count. Electrolytes are unremarkable. Normal kidney function. Normal glucose, normal LFTs. Urinalysis is unremarkable. test is negative. No bacteria seen. CT scan shows adnexal cysts which patient already know she has. No signs of abscess formation. No free fluid or air. Patient has an OBGYN appointment tomorrow morning and can be safely discharged with her follow-up. Patient is not any acute pain, comfortable appearing, tolerating oral intake and safe for discharge home at this time. <Ashutosh Gutierrez MD - Last Filed: 07/04/25 02:11> Vital Signs Vital signs: Vital Signs Temperature 36.6 C 07/03/25 15:44 Pulse Rate 71 07/03/25 15:44 Respiratory Rate 16 07/03/25 15:44 Blood Pressure 100/60 07/03/25 15:44 Pulse Oximetry 100 07/03/25 15:44 Oxygen Delivery Room Air 07/03/25 15:44 Temperature 36.6 C 07/03/25 15:44 Pulse Rate 50 L 07/03/25 21:45 Respiratory Rate 14 07/03/25 21:45 Blood Pressure 135/74 07/03/25 21:45 Pulse Oximetry 99 07/03/25 21:45 Oxygen Delivery Room Air 07/03/25 16:16 <Hubert Enciso MD - Last Filed: 07/03/25 18:57> Vital Signs Temperature 36.6 C 07/03/25 15:44 Pulse Rate 71 07/03/25 15:44 Respiratory Rate 16 07/03/25 15:44 Blood Pressure 100/60 07/03/25 15:44 Pulse Oximetry 100 07/03/25 15:44 Oxygen Delivery Room Air 07/03/25 15:44 Temperature 36.6 C 07/03/25 15:44 Pulse Rate 50 L 07/03/25 21:45 Respiratory Rate 14 07/03/25 21:45 Blood Pressure 135/74 07/03/25 21:45 Pulse Oximetry 99 07/03/25 21:45 Oxygen Delivery Room Air 07/03/25 16:16 <Ashutosh Gutierrez MD - Last Filed: 07/04/25 02:11> Medical Decision Making MDM Narrative Medical decision making narrative: -Course: Old female presenting with left lower quadrant pain. Vital signs are stable. Abdominal exam is benign. Laboratory studies and urinalysis are negative. Patient signed out to the oncoming doctor pending CT abdomen pelvis. -DDX includes but is not limited to: Ovarian cyst, colitis, tubo-ovarian abscess, diverticulitis, appendicitis, UTI <Hubert Enciso MD - Last Filed: 07/03/25 18:57> Vital Signs Vital Signs: Vital Signs Temperature 36.6 C 07/03/25 15:44 Pulse Rate 71 07/03/25 15:44 Respiratory Rate 16 07/03/25 15:44 Blood Pressure 100/60 07/03/25 15:44 Pulse Oximetry 100 07/03/25 15:44 Oxygen Delivery Room Air 07/03/25 15:44 Temperature 36.6 C 07/03/25 15:44 Pulse Rate 50 L 07/03/25 21:45 Respiratory Rate 14 07/03/25 21:45 Blood Pressure 135/74 07/03/25 21:45 Pulse Oximetry 99 07/03/25 21:45 Oxygen Delivery Room Air 07/03/25 16:16 <Hubert Enciso MD - Last Filed: 07/03/25 18:57> Vital Signs Temperature 36.6 C 07/03/25 15:44 Pulse Rate 71 07/03/25 15:44 Respiratory Rate 16 07/03/25 15:44 Blood Pressure 100/60 07/03/25 15:44 Pulse Oximetry 100 07/03/25 15:44 Oxygen Delivery Room Air 07/03/25 15:44 Temperature 36.6 C 07/03/25 15:44 Pulse Rate 50 L 07/03/25 21:45 Respiratory Rate 14 07/03/25 21:45 Blood Pressure 135/74 07/03/25 21:45 Pulse Oximetry 99 07/03/25 21:45 Oxygen Delivery Room Air 07/03/25 16:16 <Ashutosh Gutierrez MD - Last Filed: 07/04/25 02:11> Lab Data Result diagrams: 07/03/25 16:44 07/03/25 16:44 <Hubert Enciso MD - Last Filed: 07/03/25 18:57> Labs: Lab Results 07/03/25 07/03/25 Range/Units 16:44 17:48 WBC 4.0 L (4.5-10.0) K/mm3 RBC 4.28 (4.2-5.4) M/mm3 Hgb 12.7 D (12.0-15.0) g/dL Hct 39.8 (37.0-47.0) % MCV 93.0 (80-100) fl MCH 29.7 (26-34) pg MCHC 31.9 L (32-36) g/dl RDW 12.9 (11.5-14.5) % Plt Count 243 (150-375) k/mm3 MPV 9.9 (7.4-10.4) fl Immature Gran % (Auto) 0.2 (0-0.5) % Neut % (Auto) 56.0 (45.5-73.1) % Lymph % (Auto) 29.4 (18.3-44.2) % [place] % (Auto) 10.4 H (2.6-8.5) % Eos % (Auto) 3.0 (0-4.4) % Baso % (Auto) 1.0 (0.2-1.2) % Lymph # (Auto) 1.18 (0.9-3.2) K/mm3 [place] # (Auto) 0.4 (0.1-0.6) K/mm3 Eos # (Auto) 0.1 (0-0.3) K/mm3 Baso # (Auto) 0.0 (0.0-0.1) K/mm3 Abs Immat Gran (auto) 0.01 (0.00-0.031) K/mm3 Absolute Neuts (auto) 2.3 (1.3-6.7) K/mm3 Absolute Nucleated RBC 0.000 (0.0-0.012) K/mm3 Nucleated RBC % 0.0 (0.0-0.2) % Sodium 137 (137-145) mmol/L Potassium 4.2 (3.4-5.0) mmol/L Chloride 105 (98-107) mmol/L Carbon Dioxide 29 (22-30) mmol/L Anion Gap 3 L (4-12) mmol/L BUN 14 (7-17) mg/dL Creatinine 0.69 L (0.7-1.0) mg/dL Estim Creat Clear Calc 91 ml/min Estimated GFR > 60 (59 - ) Glucose 90 (65-110) mg/dL Calcium 8.5 (8.4-10.2) mg/dL Total Bilirubin 0.3 (0.2-1.3) mg/dL AST 27 (14-36) U/L ALT 17 (6-35) U/L Alkaline Phosphatase 53 (38-126) U/L Total Protein 6.2 L (6.3-8.2) g/dL Albumin 3.6 (3.5-5.1) g/dL Lipase 54 (23-300) U/L Urine Color Yellow (Yellow) Urine Appearance Clear (Clear) Urine pH 8.0 (5.0-9.0) Ur Specific [place] 1.021 (1.001-1.035) Urine Protein Trace (Negative) mg/dL Urine Glucose (UA) Negative (Negative) mg/dL Urine Ketones Negative (Negative) mg/dL Ur Blood (Man) Negative (Negative) Urine Nitrate Negative (Negative) Urine Bilirubin Negative (Negative) Urine Urobilinogen 0.2 (<2.0) mg/dL Leukocyte Esterase Rfl Negative (Negative) NORMA/UL Urine RBC 0-2 (0-2) /hpf Urine WBC 0-5 (0-3) /hpf Ur Squamous Epith Cells None seen (Few) /hpf Urine Bacteria None seen /hpf Urine Casts 0-2 Urine Test Negative <Hubert Enciso MD - Last Filed: 07/03/25 18:57> Lab Results 07/03/25 07/03/25 Range/Units 16:44 17:48 WBC 4.0 L (4.5-10.0) K/mm3 RBC 4.28 (4.2-5.4) M/mm3 Hgb 12.7 D (12.0-15.0) g/dL Hct 39.8 (37.0-47.0) % MCV 93.0 (80-100) fl MCH 29.7 (26-34) pg MCHC 31.9 L (32-36) g/dl RDW 12.9 (11.5-14.5) % Plt Count 243 (150-375) k/mm3 MPV 9.9 (7.4-10.4) fl Immature Gran % (Auto) 0.2 (0-0.5) % Neut % (Auto) 56.0 (45.5-73.1) % Lymph % (Auto) 29.4 (18.3-44.2) % [place] % (Auto) 10.4 H (2.6-8.5) % Eos % (Auto) 3.0 (0-4.4) % Baso % (Auto) 1.0 (0.2-1.2) % Lymph # (Auto) 1.18 (0.9-3.2) K/mm3 [place] # (Auto) 0.4 (0.1-0.6) K/mm3 Eos # (Auto) 0.1 (0-0.3) K/mm3 Baso # (Auto) 0.0 (0.0-0.1) K/mm3 Abs Immat Gran (auto) 0.01 (0.00-0.031) K/mm3 Absolute Neuts (auto) 2.3 (1.3-6.7) K/mm3 Absolute Nucleated RBC 0.000 (0.0-0.012) K/mm3 Nucleated RBC % 0.0 (0.0-0.2) % Sodium 137 (137-145) mmol/L Potassium 4.2 (3.4-5.0) mmol/L Chloride 105 (98-107) mmol/L Carbon Dioxide 29 (22-30) mmol/L Anion Gap 3 L (4-12) mmol/L BUN 14 (7-17) mg/dL Creatinine 0.69 L (0.7-1.0) mg/dL Estim Creat Clear Calc 91 ml/min Estimated GFR > 60 (59 - ) Glucose 90 (65-110) mg/dL Calcium 8.5 (8.4-10.2) mg/dL Total Bilirubin 0.3 (0.2-1.3) mg/dL AST 27 (14-36) U/L ALT 17 (6-35) U/L Alkaline Phosphatase 53 (38-126) U/L Total Protein 6.2 L (6.3-8.2) g/dL Albumin 3.6 (3.5-5.1) g/dL Lipase 54 (23-300) U/L Urine Color Yellow (Yellow) Urine Appearance Clear (Clear) Urine pH 8.0 (5.0-9.0) Ur Specific [place] 1.021 (1.001-1.035) Urine Protein Trace (Negative) mg/dL Urine Glucose (UA) Negative (Negative) mg/dL Urine Ketones Negative (Negative) mg/dL Ur Blood (Man) Negative (Negative) Urine Nitrate Negative (Negative) Urine Bilirubin Negative (Negative) Urine Urobilinogen 0.2 (<2.0) mg/dL Leukocyte Esterase Rfl Negative (Negative) NORMA/UL Urine RBC 0-2 (0-2) /hpf Urine WBC 0-5 (0-3) /hpf Ur Squamous Epith Cells None seen (Few) /hpf Urine Bacteria None seen /hpf Urine Casts 0-2 Urine Test Negative <Ashutosh Gutierrez MD - Last Filed: 07/04/25 02:11> Discharge Plan Discharge Clinical Impression: Abdominal pain <Hubert Enciso MD - Last Filed: 07/03/25 18:57> Patient Disposition: Home <Hubert Enciso MD - Last Filed: 07/03/25 18:57> Condition: Stable <Hubert Enciso MD - Last Filed: 07/03/25 18:57> Instructions: Antibiotic Form, Abdominal Pain (ED) <Hubert Enciso MD - Last Filed: 07/03/25 18:57> Additional Instructions: You were seen emergency department for abdominal pain. Please use Motrin and Tylenol for pain. Please follow-up with your OBGYN for further management. Your CT scan shows ovarian cysts but no signs of any free fluid or air, rupture, infection. Return to ED if you develop any fevers, severe abdominal pain or any new symptoms. <Hubert Enciso MD - Last Filed: 07/03/25 18:57> Patient Language: Ukrainian <Hubert Enciso MD - Last Filed: 07/03/25 18:57> Prescriptions: No Action levothyroxine 50 mcg tablet 50 mcg PO DAILY prednisone 20 mg tablet 40 mg PO DAILY Qty: 10 0RF hydrocodone-acetaminophen 5-325 mg tablet 1 tablet PO Q6H PRN (Reason: pain) Qty: 10 0RF cefdinir 300 mg capsule 300 mg PO Q12H 10 Days Qty: 20 0RF methylprednisolone [Medrol (Alfonso)] 4 mg tablets,dose pack See Rx Instructions .ROUTE .COMPLEX Qty: 21 0RF Rx Instructions: for 6 days cyclobenzaprine 10 mg tablet 10 mg PO BID PRN (Reason: muscle spasm) Qty: 14 0RF famotidine 20 mg tablet 20 mg PO BID Qty: 20 0RF diphenhydramine HCl 25 mg tablet 25 mg PO TID PRN (Reason: allergic reaction) Qty: 30 0RF <Hubert Enciso MD - Last Filed: 07/03/25 18:57> Follow-up/Referrals: Fidelina,THERESA Vazquez [Primary Care Provider] Lillie Gilbert MD [Physician, CREW BOAT OPERATOR] - 2 Days <Hubert Enciso MD - Last Filed: 07/03/25 18:57> Time of Disposition: 22:16 <Hubert Enciso MD - Last Filed: 07/03/25 18:57> 22:16 <Ashutosh Gutierrez MD - Last Filed: 07/04/25 02:11>
[2025-07-03] MEDS: KETOROLAC 15 MG/ML VIAL (*BKC) IV PUSH (19:09)
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
--- OUTSIDE RECORDS SUMMARY | 2025-07-03 19:30 | XMS_ITS | Clinical Summary ---
Author Organization [facility] Address [address] [place] [address] Phone Care Team Providers Care Electronics Technician Apprentice Name Role Phone Watson Hollingsworth MD Unavailable Provider, Not On File Primary Care Provider Unav ailable Allergies Active Allergy Reactions Criticality Noted Date Comments Morphine And Codeine Anxiety,Other (see Comments),Shortness of Breath High 07/28/2017 unk Shellfish Allergy Other (see Comments) High 02/19/20 20 Whey Swelling 10/08/2022 Medications ergocalciferol (VITAMIN D) 84486 UNIT Capsule TAKE 1 CAPSULE BY MOUTH 1 TIME A WEEK FOR 8 DOSES 09/24/2024 Active Active Problems Problem Noted Date Diagnosed Date Iron deficiency anemia 10/08/2022 Family History Medical History Relation Name Comments Hypertension Brother Hypertension Father Chronic Obstructive Pulmonary Disease Mother Diabetes Mother Hypertension Mother Lupus Mother Relation Name Status Comments Brother Alive Father Alive Mother Alive Social History Tobacco Use Types Packs/Day Years Used Date Smoking Tobacco: Never Smokeless Tobacco: Never Tobacco Cessation:Counseling Given: Not Answered Alcohol Use Standard Drinks/Week Comments Never 0 (1 standard drink = 0.6 oz pur e alcohol) Comments Unknown Sex and Gender Information Value Date Recorded Sex Assigned at Not on file Legal Sex Female 11:46 AM PLATFORM SOFTWARE ENGINEER Gender Identity Not on file Sexual Orientation Not on file Last Filed Vital Signs Vital Sign Reading Time Taken Comments Blood Pressure 90/60 11/16/2024 8:40 AM PLATFORM SOFTWARE ENGINEER Pulse 80 11/16/2024 8:40 AM PLATFORM SOFTWARE ENGINEER Temperature 36.8 C (98.2 F) 11/16/2024 8:40 AM PLATFORM SOFTWARE ENGINEER Respiratory Rate 18 11/16/2024 8:40 AM PLATFORM SOFTWARE ENGINEER Oxygen Saturation 98% 11/16/2024 8:40 AM PLATFORM SOFTWARE ENGINEER Inhaled Oxygen Concentration - - Weight 67.6 kg (149 lb 1.6 oz) 11/16/2024 8:40 A M PLATFORM SOFTWARE ENGINEER Height 170.2 cm (5' 7) 11/16/2024 8:40 AM PLATFORM SOFTWARE ENGINEER Body Mass Index 23.35 11/16/2024 8:40 AM PLATFORM SOFTWARE ENGINEER Plan of Treatment Health Maintenance Due Date Last Done Comments Mammogram 1984 Hepatitis B Immunization (1 of 3 - 19+ 3-dose series) 12/20/2003 Pap Smear 2005 Human Papillomavirus (HPV) Immunization (1 - 3-dose SCDM series) 12/20/2011 Cervical Cancer Screening ([facility]) 2014 HPV/Cotest 2014 Discussion re Starting/Frequency of Mammograms 2024 Influenza Immunization (#1) 2025 SARS-COV-2 Immunization ( season) 2025 11/10/2021, 10/13/2021 Respiratory Syncytial Virus (RSV) Immunization (Adult) (1 - 1-dose 75+ series) 12/20/2059 Hepatitis C Virus (HCV) Screening Completed 05/28/2017 DTaP/Tdap/Td Immunization Discontinued 03/23/2023 TdaP Immunization Completed 03/23/2023 Meningococcal Immunization (ACWY) Aged Out No longer eligible based on patient's age to complete this topic Pneumococcal Immunization Combined Aged Out No longer eligible based on patient's age to complete this topic Rotavirus Immunization Aged Out No lo nger eligible based on patient's age to complete this topic Insurance [facility] Care Teams Electronics Technician Apprentice Relationship Specialty Start Date End Date Provider, Not On File [place] PCP - General 11/16/24 Watson Hollingsworth MD [address] [place] [phone] Consulting Physician Oncology 11/06/22
--- OUTSIDE RECORDS SUMMARY | 2025-07-03 19:30 | XMS_ITS | Clinical Summary ---
Author Organization [facility] [employer] Address [address] [facility] [place] [address] Care Team Providers Care District Director Name Role Phone Hubert Moreno DO Primary Care Provider Source Comments [facility] [employer],non-owned Affiliates and Associated Physician Practices is amultiple site organization consisting of ambulatory clinics and hospital sitesin [place], [place], [place] and [place]. This disclosure is being madepursuant to the Care Everywhere program and may not contain all information available regarding this patient. Last updated 18.[facility] [employer] Allergies Active Allergy Reactions Criticality Noted Date Comments Shellfish Allergy Angioedema High 02/19/2020 Medications * Be aware that medications may not be up to date on this document. Alwaysverify current medications with the patient. No known medications Active Problems Problem Noted Date Diagnosed Date Iron deficiency anemia 08/26/2022 Intractable vomiting 10/30/2019 Intractable abdominal pain 10/27/2019 Intractable nausea and vomiting 10/27/2019 Dehydration 10/17/2019 Dizziness 08/18/2019 Morbid obesity 07/26/2019 S/P gastric bypass 07/26/2019 Resolved Problems Problem Noted Date Diagnosed Date Resolved Date Dehydration 08/18/2019 09/01/2019 Oral thrush 08/18/2019 09/15/2019 Encounters Date Type Department Care Team Description 04/30/2025 7:48 AM CDT - 04/30/2025 11:59 PM CDT Hospital Encounter [facility] [address] [place], [place] [id number] Discharge Disposition: Home or Self Care from Last 3 Months Family History Medical History Relation Name Comments Hypertension Brother Diabetes - Type 2 Maternal Grandfather Hypertension Maternal Grandfather Diabetes - Type 2 Maternal Grandmother Hypertension Maternal Grandmother Autoimmune Disease Mother COPD - Chronic Obstructive Pulmonary Disease Mother Diabetes - Type 2 Mother Hypertension Mother Cancer - Prostate Paternal Grandfather Aj Diabetes - Type 2 Paternal Grandfather Aj Hypertension Paternal Grandfather Aj CVA Paternal Grandmother Diabetes - Type 2 Paternal Grandmother Hypertension Paternal Grandmother Relation Name Status Comments Brother Maternal Grandfather Maternal Grandmother Mother Paternal Grandfather Aj Paternal Grandmother Social History Tobacco Use Types Packs/Day Years Used Date Smoking Tobacco: Former Cigarettes Q uit: 2003 Smokeless Tobacco: Never Alcohol Use Standard Drinks/Week Comments Yes 0 (1 standard drink = 0.6 oz pur e alcohol) Comments No Sex and Gender Information Value Date Recorded Sex Assigned at Not on file Legal Sex Female 5:33 AM CLINICAL APPEALS RN Gender Identity Not on file Sexual Orientation Not on file Last Filed Vital Signs Vital Sign Reading Time Taken Comments Blood Pressure 104/68 11/19/2023 1:15 PM CLINICAL APPEALS RN Pulse 65 11/19/2023 1:15 PM CLINICAL APPEALS RN Temperature 36.4 C (97.6 F) 11/19/2023 1:15 PM CLINICAL APPEALS RN Respiratory Rate 16 11/02/2019 1:43 PM CLINICAL APPEALS RN Oxygen Saturation 98% 11/19/2023 1:15 PM CLINICAL APPEALS RN Inhaled Oxygen Concentration - - Weight 65.3 kg (144 lb) 04/30/2025 8:03 AM CDT Height 170.2 cm (5' 7) 04/30/2025 8:03 AM CDT Body Mass Index 22.55 04/30/2025 8:03 AM CDT Plan of Treatment Health Maintenance Due Date Last Done Comments DTAP/TDAP/TD VACCINES (1 - Tdap) 12/20/2003 HEPATITIS B VACCINE (1 of 3 - 19+ 3-dose series) 12/20/2003 PAP SMEAR 2005 HPV VACCINE (1 - 3-dose SCDM series) 12/20/2011 DEPRESSION SCREENING 09/13/2024 COVID-19 VACCINE (1 - 2023-2 5 season) 2025 INFLUENZA VACCINE (#1) 2025 MAMMOGRAM 04/30/2027 04/30/2025 LIPID TESTING 08/30/2029 08/30/2024, 09/28/2008 ZOSTER VACCINE (1 of 2) 2034 HEPATITIS C SCREENING Completed 05/28/2017 HIV SCREENING Completed 08/18/2019 HIB VACCINE Aged Out No longer eligi ble based on patient's age to complete this topic MENINGOCOCCAL (Group B) VACCINE SHARED DECISION-MAKING Aged Out No longer eligible based on patient's age to complete this topic MENINGOCOCCAL GROUPS A/C/Y/W VACCINE Aged Out No longer eligible b ased on patient's age to complete this topic PNEUMOCOCCAL VACCINE Aged Out No long er eligible based on patient's age to complete this topic Procedures Procedure Name Priority Date/Time Associated Diagnosis Comments MAMMO BILAT SCREENING W DARION Routine 04/30/2025 8:15 AM CDT Encounter for screening mammogram for malignant neoplasm of breast HIV-1 HIV-2 ANTIBODY + HIV P24 AG PANEL Routine 08/18/2019 11:01 AM CLINICAL APPEALS RN LIPID PROFILE Routine 09/28/2008 9:22 AM CLINICAL APPEALS RN Unspecified Chest Pain from Last 3 Months or Most Recently Relevant to Health Maintenance Results * Mammo Bilat Screening W Darion (04/30/2025 8:15 AM CDT) Anatomical Region Laterality Modality Breast Bilateral Mammography 04/30/2025 3:34 PM CDT Impressions 04/30/2025 3:35 PM CDT IMPRESSION: No mammographic evidence of malignancy in either breast. ASSESSMENT: BI-RADS CATEGORY 1: NEGATIVE. RECOMMENDATION: Bilateral screening mammogram in one year. Thank you for allowing us to participate in the care of your patient. [facility] utilizes [employer] as a reminder system to notify patients of their next recommended mammogram. > Interpreting Provider: Sherita Ospina MD on 04/30/2025 3:35 PM Narrative 04/30/2025 3:35 PM CDT EXAMINATION: Digital screening mammogram. Low-dose full-field digital breast tomosynthesis examination was performed with synthetic 2D images. Computer assisted detection was utilized. DATE: 04/30/2025 8:16 AM PRIOR: None, this is a baseline BREAST PARENCHYMAL DENSITY: Category C: The breasts are heterogeneously dense which may obscure small masses. FINDINGS: No suspicious masses, areas of architectural distortion or microcalcifications are evident on synthetic 2D mammogram or tomosynthesis images. Screening Mammogram Self Referral MAMMO ORDERABL ES Final Result * HIV-1 HIV-2 ANTIBODY + HIV P24 AG PANEL (08/18/2019 11:01 AM CLINICAL APPEALS RN) HIV1/2 Ab + P24 Ag Non Reactive Non Reactive 08/18/2019 12:00 PM CLINICAL APPEALS RN [facility] Blood BLOOD SPECIMEN / Unknown Venipuncture / Unknown 08/18/2019 11:01 AM CLINICAL APPEALS RN 08/18/2019 11:13 AM CLINICAL APPEALS RN Narrative [facility] - 08/18/2019 12:00 PM CLINICAL APPEALS RN No Laboratory evidence of HIV infection. Benjamin De Guzman MD LAB - CHEMISTRY ORDERABLES Final Result [facility] [address] [place] [address] * (ABNORMAL) LIPID PROFILE (09/28/2008 9:22 AM CLINICAL APPEALS RN) Cholesterol 260(H) 120.0 - 200.0 mg/dl [facility] Triglycerides 78 0.0 - 250.0 mg/dl [facility] HDL Cholesterol 49 >40 mg/dl [facility] LDL Calculated 195.4 mg/dl [facility] Chol HDL Ratio 5.3 [facility] Comment Lipid [facility] Comment: Risk Classification HDL CHOL LDL CHOL TOTAL CHOL According to NCEP (mg/dl) (mg/dL) (mg/dl) Desirable >40 <130 < 200 Borderline/High - 130-159 200-239 High - >159 > 239 The total cholesterol to HDL cholesterol ratio may be used to predict risk for coronary heart disease in untreated patients according to data reported from the [place] Study by Joshua Crow M.D. The predictive value in patients over 60 years of age is uncertain. Risk TOTAL CHOL/HDL RATIO MEN WOMEN 1/2 Average 3.43 3.27 Average 4.97 4.44 2X Average 9.55 7.05 3X Average 23.39 11.04 In Coronary Artery Disease patients, in whom nonpharmacological therapy has failed, the AHA recommends that drug therapy should be prescribed to lower LDL cholesterol to <100mg/dL. Drug therapy may be instituted in patients with HDL <35mg/dL. The reported LDL is a calculated result. For a more precise measurement, a direct LDL test is available, as necessary. BLOOD SPECIMEN / Unknown 09/28/2008 9:22 AM CLINICAL APPEALS RN Neda Castrejon MD LAB - CHEMISTRY ORDERABLES Fi nal Result [facility] [address] [place] [address] from Last 3 Months or Most Recently Relevant to Health Maintenance Insurance [facility] Advance Directives * Full Code (Latest Code Status on File) Date Activated Date Inactivated Comments 10/30/2019 10:02 PM 11/02/2019 3:23 PM * Full Code Date Activated Date Inactivated Comments 10/27/2019 12:52 AM 10/28/2019 7:14 PM * Full Code Date Activated Date Inactivated Comments 08/18/2019 6:14 AM 08/22/2019 9:01 PM * Full Code Date Activated Date Inactivated Comments 07/26/2019 3:40 PM 07/28/2019 1:32 PM Care Teams District Director Relationship Specialty Start Date End Date Hubert Moreno DO PCP - General Family Medicine 06/22/19
--- OUTSIDE RECORDS SUMMARY | 2025-07-03 19:50 | XMS_ITS | Encounter Summary ---
Author Organization [facility] Address [address] [place] [address] Care Team Providers Care Banbury Machine Operator Name Role Phone Sonam Russo CANE LOADER Primary Care Provider Daphnie Chavarria CANE LOADER Primary Care Provider [phone] Taylor Kitchen CANE LOADER Primary Care Provider [phone] Encounter Details Date Type Department Care Team (Late st Contact Info) Description 10/19/2022 [employer] Message Enc [facility] Family Medicine [address] [address] [place], [facility] Provider Visdeo Visit for today 10/19/2022 Social History Tobacco Use Types Packs/Day Years Used Date Smoking Tobacco: Former Cigarettes 2001 Smokeless Tobacco: Former Comments:Vapes Alcohol Use Standard Drinks/Week Comments No 0 (1 standard drink = 0.6 oz pur e alcohol) PHQ-2 Answer Date Recorded PHQ-2 Score - If the patient scores above 3, please move on to questions 3-9 0 08/04/2022 Comments No Sex and Gender Information Value Date Recorded Sex Assigned at Not on file Legal Sex Female 1:26 PM CDT Gender Identity Not on file Sexual Orientation Not on file documented as of this encounter Plan of Treatment Not on file documented as of this encounter Visit Diagnoses Not on filedocumented in this encounter Care Teams Banbury Machine Operator Relationship Specialty Start Date End Date Sonam Russo NP PCP - General NURSE PRACTITIONER 05/13/20 02/09/24 Daphnie Zimmerman NP [address] [place] [address] PCP - General NURSE PRACTITIONER 02/10/24 06/12/24 Taylor Kitchen [place] [address] PCP - General NURSE PRACTITIONER 06/13/24 documented as of this encounter
--- OUTSIDE RECORDS SUMMARY | 2025-07-03 19:50 | XMS_ITS | Encounter Summary ---
Author Organization [facility] Address [address] [place] [address] Care Team Providers Care Asset Management Analyst Name Role Phone Sonam Russo CLINICAL SPECIALIST Primary Care Provider Daphnie Chavarria CLINICAL SPECIALIST Primary Care Provider [phone] Taylor Kitchen CLINICAL SPECIALIST Primary Care Provider [phone] Encounter Details Date Type Department Care Team (Late st Contact Info) Description 01/16/2021 [employer] Message Enc [facility] Family Medicine [address] [phone] [place], [facility] Provider Message reply Social History Tobacco Use Types Packs/Day Years Used Date Smoking Tobacco: Never Smokeless Tobacco: Never Alcohol Use Standard Drinks/Week Comments No 0 (1 standard drink = 0.6 oz pur e alcohol) PHQ-2 Answer Date Recorded PHQ-2 Score - If the patient scores above 3, please move on to questions 3-9 0 05/13/2020 Comments No Sex and Gender Information Value Date Recorded Sex Assigned at Not on file Legal Sex Female 1:26 PM CDT Gender Identity Not on file Sexual Orientation Not on file documented as of this encounter Plan of Treatment Not on file documented as of this encounter Visit Diagnoses Not on filedocumented in this encounter Additional Health Concerns Infection Onset Date Last Indicated Resolved Time COVID-19 Rule Out 09/12/2021 09/12/2021 09/13/2021 6:16 AM JEWELRY MAKING INSTRUCTOR COVID-19 Confirmed 09/12/2021 09/12/2021 12:32 AM JEWELRY MAKING INSTRUCTOR documented as of this encounter Care Teams Asset Management Analyst Relationship Specialty Start Date End Date Sonam Russo NP PCP - General NURSE PRACTITIONER 05/13/20 02/09/24 Daphnie Zimmerman NP [address] [place] [address] PCP - General NURSE PRACTITIONER 02/10/24 06/12/24 Taylor [place] [address] PCP - General NURSE PRACTITIONER 06/13/24 documented as of this encounter
--- OUTSIDE RECORDS SUMMARY | 2025-07-03 19:50 | XMS_ITS | Encounter Summary ---
Author Organization [facility] Address [address] [place] [address] Care Team Providers Care Project Construction Assistant Manager Name Role Phone Sonam Russo TOURIST ADVISER Primary Care Provider Daphnie Chavarria TOURIST ADVISER Primary Care Provider [phone] Taylor Kitchen TOURIST ADVISER Primary Care Provider [phone] Encounter Details Date Type Department Care Team (Late st Contact Info) Description 09/03/2021 Prep for Procedure [facility] [place] [address] Herb Brothers MD [address] [phone] Social History Tobacco Use Types Packs/Day Years Used Date Smoking Tobacco: Former Cigarettes 2001 Smokeless Tobacco: Former Quit: 2004 Alcohol Use Standard Drinks/Week Comments No 0 [...] on file Sexual Orientation Not on file COVID-19 Exposure Response Date Recorded In the last month, have you been in contact with someone who was confirmed or suspected to have Coronavirus / COVID-19? No / Unsure 09/03/2021 9:03 AM SHOP HELPER documented as of this encounter Plan of Treatment Not on file documented as of this encounter Results * (ABNORMAL) CORONAVIRUS (COVID 19) (09/12/2021 9:50 AM SHOP HELPER) SPEC DESCRIPTION NASAL 09/12/20 10:45 AM SHOP HELPER [facility] CORONAVIRUS SARS COV 2 PCR (RESP) POSITIVE(A A) NEGATIVE 09/13/2021 6:16 AM SHOP HELPER [facility] Comment: THE SARS-CoV-2 TEST HAS BEEN AUTHORIZED BY THE FDA UNDER AN EUA FOR USE BY AUTHORIZED LABORATORIES. PERFORMED BY NUCLEIC ACID AMPLIFICATION PCR FIRST TEST UNKNOWN 09/12/2021 10:45 AM SHOP HELPER [facility] EMPLOYED IN HEALTHCARE NO 09/12/2021 10:45 AM SHOP HELPER [facility] SYMPTOMATIC DEFINED BY CDC NO 09/12/2021 10:45 AM SHOP HELPER [facility] HOSPITALIZATION STATUS NO 09/12/2021 10:45 AM SHOP HELPER [facility] PATIENT IN ICU NO 09/12/2021 10:45 AM SHOP HELPER [facility] RESIDENT OF CONGREGATE CARE NO 09/12/2021 10:45 AM SHOP HELPER [facility] UNKNOWN 09/12/2021 10:45 AM [facility] NASAL STRUCTURE / Unknown 09/12/2021 9:50 AM SHOP HELPER Herb Brothers MD MICROBIOLOGY - GENERAL ORDERABLE S Final Result [facility] [address] [place] [address], [place] [phone] [facility] [address] [place] [address], [place] [phone] documented in this encounter Visit Diagnoses Diagnosis BRBPR (bright red blood per rectum)- Primary Hemorrhage of rectum and anus documented in this encounter Additional Health Concerns Infection Onset Date Last Indicated Resolved Time COVID-19 Rule Out 09/12/2021 09/12/2021 09/13/2021 6:16 AM SHOP HELPER COVID-19 Confirmed 09/12/2021 09/12/2021 12:32 AM SHOP HELPER documented as of this encounter Care Teams Project Construction Assistant Manager Relationship Specialty Start Date End Date Sonam Russo, TOURIST ADVISER PCP - General NURSE PRACTITIONER 05/13/20 02/09/24 Daphnie Zimmerman, MYRNA [address] [place] [address] PCP - General NURSE PRACTITIONER 02/10/24 06/12/24 Taylor Kitchen [place] [address] PCP - General NURSE PRACTITIONER 06/13/24 documented as of this encounter
--- OUTSIDE RECORDS SUMMARY | 2025-07-03 19:50 | XMS_ITS | Encounter Summary ---
Author Organization [facility] Address [address] [place] [address] Care Team Providers Care Lineworker Name Role Phone Sonam Russo CYLINDER HONER Primary Care Provider Daphnie Chavarria CYLINDER HONER Primary Care Provider [phone] Taylor Kitchen CYLINDER HONER Primary Care Provider [phone] Encounter Details Date Type Department Care Team (Late st Contact Info) Description 09/21/2022 [employer] Message Enc [facility] Family Medicine [address] [address] [place], [facility] Provider Appoiointment Social History Tobacco Use Types Packs/Day Years [...] on filedocumented in this encounter Care Teams Lineworker Relationship Specialty Start Date End Date Sonam Russo NP PCP - General NURSE PRACTITIONER 05/13/20 02/09/24 Daphnie Zimmerman NP [address] [place] [address] PCP - General NURSE PRACTITIONER 02/10/24 06/12/24 Taylor [place] [address] PCP - General NURSE PRACTITIONER 06/13/24 documented as of this encounter
--- OUTSIDE RECORDS SUMMARY | 2025-07-03 19:50 | XMS_ITS | Encounter Summary ---
Author Organization [facility] Address [address] [place] [address] Care Team Providers Care Computer Engineering Technologist Name Role Phone Sonam Russo PERFORATOR OPERATOR Primary Care Provider Daphnie Chavarria PERFORATOR OPERATOR Primary Care Provider [phone] Taylor Kitchen PERFORATOR OPERATOR Primary Care Provider [phone] Encounter Details Date Type Department Care Team (Late st Contact Info) Description 10/13/2022 [employer] Message Enc [facility] Family Medicine [address] [phone] [facility] Video Visit Social History Tobacco Use Types Packs/Day Years [...] on filedocumented in this encounter Care Teams Computer Engineering Technologist Relationship Specialty Start Date End Date Sonam Russo NP PCP - General NURSE PRACTITIONER 05/13/20 02/09/24 Daphnie Zimmerman NP [address] [place] [address] PCP - General NURSE PRACTITIONER 02/10/24 06/12/24 Taylor [place] [address] PCP - General NURSE PRACTITIONER 06/13/24 documented as of this encounter
--- OUTSIDE RECORDS SUMMARY | 2025-07-03 19:50 | XMS_ITS | Clinical Summary ---
Author Organization [facility] Address [address] [place] [address] Care Team Providers Care Quality Manager Name Role Phone Taylor Kitchen MYRNA Primary Care Provider [phone] Allergies Active Allergy Reactions Criticality Noted Date Comments Morphine And Codeine Shortness of Breath,Anxiety High 07/28/2017 Penicillins Unknown 05/27/2020 Shellfish Allergy Angioedema High 02/19/2020 Protein Swelling Medium 03/24/2022 Lips, tongue and eyes Medications valACYclovir (VALTREX) 500 MG tablet Take 1 tablet (500 mg total) by mouth as needed (as needed for cold sores). 12/23/2023 Active vitamin D2, ergocalciferol, (DRISDOL) 1.25 mg capsuleIndicati ons:Vitamin D deficiency TAKE 1 CAPSULE BY MOUTH 1 TIME A WEEK FOR 8 DOSES 8 capsule 12/26/2024 Active Active Problems Problem Noted Date Diagnosed Date Iron deficiency anemia, unspecified 09/27/2024 Loose stools 07/31/2021 Overview (07/31/2021): Added automatically from request for surgery [id number] Dyschezia 07/31/2021 Overview (07/31/2021): Added automatically from request for surgery [id number] Hematochezia 07/31/2021 Overview (07/31/2021): Added automatically from request for surgery [id number] (bright red blood per rectum) 07/31/2021 Overview (07/31/2021): Added automatically from request for surgery [id number] Anxiety 01/20/2018 Short of breath on exertion 01/20/2018 Weight gain 01/20/2018 Abnormal ultrasound 07/13/2017 Generalized anxiety disorder 07/05/2017 Helicobacter pylori infection 06/21/2017 Hypothyroidism 04/30/2017 Heavy periods 04/28/2017 Fatigue 04/28/2017 Circadian rhythm sleep disorder, shift work type 06/08/2016 Gastroesophageal reflux disease 08/22/2015 TMJ arthritis 03/26/2015 IT band syndrome 11/23/2014 Atopic dermatitis 08/17/2014 HSV (herpes simplex virus) infection 04/30/2014 Obese 04/30/2014 Resolved Problems Problem Noted Date Diagnosed Date Resolved Date Screening for STD (sexually transmitted disease) 05/28/2017 05/24/2020 Encounter for preventive health examination 04/30/2014 05/24/2020 Immunizations Immunization Administration Dates Next Due Tdap (Generic) 03/23/2023 Family History Medical History Relation Comments Lupus Brother Stroke Maternal Grandfather Drug Abuse Maternal Grandmother Stroke Maternal Grandmother Lupus Mother stomach cancer Paternal Grandfather Drug Abuse Paternal Grandmother Relation Status Comments Brother Maternal Grandfather Maternal Grandmother Mother Paternal Grandfather Paternal Grandmother Social History Tobacco Use Types Packs/Day Years Used Date Smoking Tobacco: Former Cigarettes 2001 Passive Smoke Exposure: Never Smokeless Tobacco: Former Tobacco Cessation:Counseling Given: No Comments:Vapes Alcohol Use Standard Drinks/Week Comments No 0 (1 standard drink = 0.6 oz pur e alcohol) PHQ-2 Answer Date Recorded Patient Health Questionnaire-2 Score 0 09/14/2024 Comments No Sex and Gender Information Value Date Recorded Sex Assigned at Not on file Legal Sex Female 1:26 PM CDT Gender Identity Not on file Sexual Orientation Not on file Last Filed Vital Signs Vital Sign Reading Time Taken Comments Blood Pressure 92/55 12/06/2024 9:10 AM CDT Pulse 62 12/06/2024 9:10 AM CDT Temperature 36.2 C (97.2 F) 12/06/2024 9:10 AM CDT Respiratory Rate 20 10/10/2024 8:12 AM YARN TEXTURING MACHINE OPERATOR Oxygen Saturation 100% 12/06/2024 9:10 AM CDT Inhaled Oxygen Concentration - - Weight 65.5 kg (144 lb 8 oz) 08/24/2024 8:27 AM YARN TEXTURING MACHINE OPERATOR Height 169.3 cm (5' 6.65) 08/24/2024 8:27 AM CS T Body Mass Index 22.87 08/24/2024 8:27 AM YARN TEXTURING MACHINE OPERATOR Plan of Treatment Health Maintenance Due Date Last Done Comments Hepatitis B Vaccines (1 of 3 - 19+ 3-dose series) 12/20/2003 HPV Vaccines (1 - 3-dose SCD M series) 12/20/2011 Cervical Cancer Screening Pa p Smear (Age 30 to 64) Every 3 Years 11/23/2017 11/23/2014 Cervical Cancer Screening Pa p with HPV Testing (Age 30 to 64) Every 5 Years 07/06/2022 07/06/2017, 07/05/2017, 07/05/2017 Cervical Cancer Screening wi th HPV 07/06/2022 Mammogram Screening 2024 COVID-19 Vaccine (2 6 season) 2025 11/10/2021, 10/13/2021 Influenza Adult (#1) 2025 Annual Physical 08/24/2025 08/24/2024 DTaP, Tdap and Td Vaccines ( 2 - Td or Tdap) 03/23/2033 03/23/2023 Hepatitis C Completed 05/28/2017, 05/28/2017 PHQ-2 (Physician [place]) Completed 09/14/2024 Hepatitis A Vaccines Aged Out No long er eligible based on patient's age to complete this topic Meningococcal B Vaccine Aged Out No l onger eligible based on patient's age to complete this topic Meningococcal Vaccine Aged Out No susana genaro eligible based on patient's age to complete this topic Pneumococcal Vaccine: Pediatrics (0 to 5 Years) and At-Risk Patients (6 to 49 Years) Aged Out No longer eligible b ased on patient's age to complete this topic RSV Immunizations Under 20 Months Aged Out No longer eligible b ased on patient's age to complete this topic Procedures Procedure Name Priority Date/Time Associated Diagnosis Comments HPV MRNA E6/E7 Routine 07/06/2017 6:07 PM CDT HEPATITIS C ANTIBODY Routine 05/28/2017 9:30 AM CDT THINPREP IMAGING SYSTEM PAP Routine 11/23/2014 10:47 AM CDT from Last 3 Months or Most Recently Relevant to Health Maintenance Results * HPV MRNA E6/E7 (07/06/2017 6:07 PM CDT) HPV MRNA E6/E7 Not Detected NOT DETECTED 07/10/2017 1:30 PM CDT [facility] MADDOXSimonaREMAVONNIE CONTRERAS Comment: This test was performed using the APTIMA(R) HPV Assay([employer]This assay detects E6/E7 viral messenger RNA (mRNA)from 14 high-risk HPV types (16,18,31,33,35,39,45,51,52,56,58,59,66,68).For additional information please refer to:http://education.infotope GmbH/faq/TQT612a4(This link is being provided for informational/educational purposes only.)Test Performed by [employer],[employer] [facility],[address] [place] [id number] Connor M.D., Ph.D., Director of [phone], [facility] [id number] FLUID SPECIMEN / Unknown 07/06/2017 6:07 PM CDT 07/06/2017 6:07 PM CDT us Generic Conversion Md [facility] PATHOLOGY/CYTOLOGY [facility] Final Result [address] , * HEPATITIS C ANTIBODY (05/28/2017 9:30 AM CDT) Pathologist [facility] HEPATITIS C AB NON-REACTIVE TESTING PERFORMED AT [address] [address] NR [facility] TO EPIC CONVERSION 05/28/2017 9:30 AM CDT 05/28/2017 9:30 AM CDT Narrative [facility] TO EPIC CONVERSION - 05/31/2017 6:47 PM CDT Result Communication: Mail Results to Patient us Taylor Kitchen [facility] Final Result [facility] TO EPIC CONVERSION * THINPREP IMAGING SYSTEM PAP (11/23/2014 10:47 AM CDT) SOURCE (QST) Cervix [facility] P TO EPIC CONVERSION CLINICAL INFORMATION: SEE NOTE [facility] TO EPIC CONVERSION Comment:Result Comment: Norm al exam Clinical Information: 11/10/14 [facility] TO EPIC CONVERSION Date of Last Pap SEE NOTE [facility] TO EPIC CONVERSION Comment:Result Comment: 2 YE ARS AGO Previous Biopsy? NA [facility] TO EPIC CONVERSION COMMENT SEE NOTE [facility] T O EPIC CONVERSION Comment: Result Comment: Satisfactory for evaluation. Endocervical/transformation zone component present. PAP INTERPRETATION/RESUL TS SEE NOTE [facility] TO EPIC CONVERSION Comment:Result Comment: Nega tive for intraepithelial lesion or malignancy. COMMENT: SEE NOTE [facility] T O EPIC CONVERSION Comment: Result Comment: This Pap test has been evaluated with computer assisted technology. TEST ADMINISTRATOR SEE NOTE [facility] TO EPIC CONVERSION Comment: Result Comment: MVB, CT(ASCP) Test Performed at: [facility] [address] [address] KAL YA MD 11/23/2014 10:4 7 AM CDT 11/23/2014 10:47 AM CDT Narrative [facility] TO EPIC CONVERSION - 11/26/2014 6:22 AM CDT Result Communication: Call patient with results us Hubert Moreno DO PATHOLOGY/CYTOLOGY ORDERABLE S Final Result [facility] TO EPIC CONVERSION from Last 3 Months or Most Recently Relevant to Health Maintenance Insurance [facility] Care Teams Quality Manager Relationship Specialty Start Date End Date Taylor Kitchen NP [place] [id number] PCP - General NURSE PRACTITIONER 06/13/24
--- OUTSIDE RECORDS SUMMARY | 2025-07-03 19:50 | XMS_ITS | Encounter Summary ---
Author Organization [facility] Address [facility] [place] [address] Care Team Providers Care Repairer Art Objects Name Role Phone Moreno Hubert L DO Primary Care Provider [phone] Sonam Russo AERIAL PHOTOGRAPHER Primary Care Provider Unavaila Daphnie Sarmiento AERIAL PHOTOGRAPHER Primary Care Provider [phone] Taylor Kitchen AERIAL PHOTOGRAPHER Primary Care Provider [phone] Encounter Details Date Type Department Care Team (Late st Contact Info) Description 07/06/2017 Abstract [facility] CONVERSION [address] [place] [address] , Generic Conversion, Social History Tobacco Use Types Packs/Day Years Used Date Smoking Tobacco: Never Assessed Comments Unknown Sex and Gender Information Value Date Recorded Sex Assigned at Not on file Legal Sex Female 1:26 PM CDT Gender Identity Not on file Sexual Orientation Not on file documented as of this encounter Plan of Treatment Not on file documented as of this encounter Procedures Procedure Name Priority Date/Time Associated Diagnosis Comments HPV MRNA E6/E7 Routine 07/06/2017 6:07 PM CDT CHLAMYDIA AND GC RNA TMA Routine 07/06/2017 6:07 PM CDT documented in this encounter Results * HPV MRNA E6/E7 (07/06/2017 6:07 PM CDT) HPV MRNA E6/E7 Not Detected NOT DETECTED 07/10/2017 1:30 PM CDT [facility] PEDRO CONTRERAS Comment: This test was performed using the APTIMA(R) HPV Assay([employer]This assay detects E6/E7 viral messenger RNA (mRNA)from 14 high-risk HPV types (16,18,31,33,35,39,45,51,52,56,58,59,66,68).For additional information please refer to:http://education.ivWatch/faq/ZZY373m6(This link is being provided for informational/educational purposes only.)Test Performed by [facility] [place],[address] [place] [id number] Connor M.D., Ph.D., Director of [phone], CLIA [id number] FLUID SPECIMEN / Unknown 07/06/2017 6:07 PM CDT 07/06/2017 6:07 PM CDT us Generic Conversion Md [facility]INA PATHOLOGY/CYTOLOGY [facility] Final Result [facility] [address] [address], * CHLAMYDIA AND GC RNA TMA (07/06/2017 6:07 PM CDT) CHLAMYDIA TRACHOMATIS RNA TMA Not Detected Not Detected 07/11/2017 6:22 AM CDT [facility] N.GONORRHOEAE RNA TMA (QST) Not Detected Not Detected 07/11/2017 6:22 AM CDT [facility] Comment: This test was performed using the APTIMA COMBO2(R)Assay (GEN-PROBE(R)).The analytical performance characteristics of thisassay, when used to test SurePath(R) specimens havebeen determined by Present.Test Performed by [facility] [place],[address] [place] [id number] Connor M.D., Ph.D., Director of [phone], CLIA [id number] URINE SPECIMEN / Unknown 07/06/2017 6:07 PM CDT 07/06/2017 6:07 PM CDT us Generic Conversion Md [facility] MICROBIOLOGY - GENERAL ORDERABLES Final Result [facility] [address] [place] [address], [place] [phone] documented in this encounter Visit Diagnoses Not on filedocumented in this encounter Additional Health Concerns Infection Onset Date Last Indicated Resolved Time COVID-19 Rule Out 09/12/2021 09/12/2021 09/13/2021 6:16 AM SECURITIES LENDING TRADER COVID-19 Confirmed 09/12/2021 09/12/2021 12:32 AM SECURITIES LENDING TRADER documented as of this encounter Care Teams Repairer Art Objects Relationship Specialty Start Date End Date Hubert Moreno DO PCP - General FAMILY PRACTICE 02/12/16 05/12/20 Sonam Russo, AERIAL PHOTOGRAPHER PCP - General NURSE PRACTITIONER 05/13/20 02/09/24 Daphnie Zimmerman, MYRNA [address] [place] [address] PCP - General NURSE PRACTITIONER 02/10/24 06/12/24 Taylor Kitchen NP [address] [address] PCP - General NURSE PRACTITIONER 06/13/24 documented as of this encounter
--- OUTSIDE RECORDS SUMMARY | 2025-07-03 19:50 | XMS_ITS | Encounter Summary ---
Author Organization [facility] Address [address] [place] [address] Care Team Providers Care Radio Recorder Name Role Phone Sonam Russo COMMUNICATIONS AGENT Primary Care Provider Daphnie Chavarria COMMUNICATIONS AGENT Primary Care Provider [phone] Taylor Kitchen COMMUNICATIONS AGENT Primary Care Provider [phone] Encounter Details Date Type Department Care Team (Late st Contact Info) Description 08/04/2023 Nanoleaf Message Enc [facility] Family Medicine [address] [address] [facility], [facility] Provider Dermatology Appoointment Social History Tobacco Use Types Packs/Day Years Used Date Smoking Tobacco: Former Cigarettes 2001 Smokeless Tobacco: Former Comments:Vapes Alcohol Use Standard Drinks/Week Comments No 0 (1 standard drink = 0.6 oz pur e alcohol) PHQ-2 Answer Date Recorded Patient Health Questionnaire-2 Score 0 05/07/2023 Comments No Sex and Gender Information Value Date Recorded Sex Assigned at Not on file Legal Sex Female 1:26 PM CDT Gender Identity Not on file Sexual Orientation Not on file documented as of this encounter Plan of Treatment Not on file documented as of this encounter Visit Diagnoses Not on filedocumented in this encounter Care Teams Radio Recorder Relationship Specialty Start Date End Date Sonam Russo NP PCP - General NURSE PRACTITIONER 05/13/20 02/09/24 Daphnie Zimmerman NP [address] [place] [address] PCP - General NURSE PRACTITIONER 02/10/24 06/12/24 Taylor [place] [address] PCP - General NURSE PRACTITIONER 06/13/24 documented as of this encounter
== END 2025-07-03 22:38 | disposition home or self-care (01) ==
PROVIDERS: Student in an Organized Health Care Education/Training Program; Emergency Provider Emergency Medicine; PCP Nurse Practitioner
DX: R10.32 Left lower quadrant pain (principal); N76.0 Acute vaginitis; Z98.84 Bariatric surgery status; Z90.49 Acquired absence of other specified parts of digestive tract; N94.89 Other specified conditions associated with female genital organs and menstrual cycle
CPT/HCPCS: 36415; 74177; 80053; 81001; 81025; 83690; 85025; 96374; 99284; J1885; Q9967